=== PATIENT | male | born 1980 | race Caucasian/White ===

== ENCOUNTER → 2017-11-06 | Outpatient (CLI) | payer MEDICARE ==
[~2017-11-06] MED LIST: BACTRIM DS TAB1 EACH PO; CIPRO500 MG PO; CLARITHROMYCIN500 MG PO; DOXEPIN 10 MG C10 MG GT; DOXEPIN 25 MG C25 M1 PO; FLAGYL500 MG PO; HYDROCODONE-AP1 EAC6 PO; HYDROCORTISONE30 G9 RECTAL; IBUPROFEN 800800 M1 PO; LEVSIN-SL0.125 MG SUBLING; MYAMBUTOL 400400 M1 PO; MYCOBUTIN150 MG PO; NAPROSYN500 MG PO; NORCO 5-325 TA1 EACH PO; PHENERGAN 25 MG25 M1 PO; PREDNISONE 20 M20 MG PO; PROZAC PO; PROZAC20 MG PO; TIZANIDINE HCL 22 M1 PO; TORADOL 10 MG T10 MG PO; VIAGRA50 MG PO; VISTARIL 25 MG25 M1 PO; ZANAFLEX2 MG PO; ZOFRAN ODT4 MG PO
--- NOTE | 2017-11-11 07:00 | PAINCON ---
[facility] [address] [place] [address] PAIN MANAGEMENT CONSULTATION Name: BROOKE SCHERER Room: [facility] Giovanni#: [id number] Admission: 11/06/17 Attend Phys: Michoacano Faulkner Discharge: Date of : 82 Report #: [id number] THIS REPORT FOR: //name// CC: Luke Zurita DATE OF SERVICE: 11/06/2017 The patient is a 37-year-old gentleman being treated for chronic abdominal pain, left testicular pain, myofascial pain requiring complex medication management. The patient was last seen in pain clinic 07/03/2017. The patient was continued on hydrocodone 5/325 rare use, 20 tablet prescription has lasted these past 4 months. Reviewing the chart, I had ordered a buccal swab at last visit, though it appears that may not have been accomplished. We will want to obtain a buccal swab at next visit. He returns to pain clinic today noting overall pain has been reasonably well controlled. He was seen in the ER 1 time 08/09/2017 for migraine headache. Otherwise, abdominal pain has been relatively quiescent. I trialed Levsin with really no efficacy. He did have what sounds like a perirectal abscess drained about a year ago. He still has a little episodic drainage from this area. I strongly recommended that he follow up with his prior surgeon. PHYSICAL EXAMINATION: Otherwise shows 37-year-old gentleman, BMI is 28.6 kilograms per meter squared. Blood pressure 114/75, pulse 74, respirations are 16. Alert and oriented to person, place and time, judged to be a reasonable historian. Rises from chair easily. Gait is tandem. Has some tenderness in left perirectal area. Rectal exam was deferred. Has some diffuse low back tenderness, diffuse abdominal pain, no discrete tender areas. No rebound, no guarding. ASSESSMENT: A 37-year-old gentleman with: 1. Chronic abdominal pain, uses infrequent hydrocodone 5/325, 20 tablets lasted 4 months at last visit. Tizanidine at bedtime has not been helpful. We will discontinue that. Likewise, Levsin had not been efficacious, we will discontinue that as well. We talked about trialing resumption of Naprosyn. Oftentimes, abdominal pain can be prostaglandin mediated, we will trial this again. The patient cautioned about gastrointestinal issues including dyspepsia, gastroesophageal reflux, "heartburn" and/or melenic stools. For any of these reasons, he should discontinue Naprosyn. I will renew hydrocodone 5/325, limit 30 tablets 1 q.6h., not to be used daily. We will trial Naprosyn 5 mg b.i.d. with again cautioned for GI distress. Follow up simply as needed. Discharged in good and stable condition [facility] [address] [place] [address] PAIN MANAGEMENT CONSULTATION Name: BROOKE SCHERER Room: [facility]#: [id number] Admission: 11/06/17 Attend Phys: Michoacano Faulkner Discharge: Date of : 82 Report #: [id number] 2. Chronic left testicular pain. 3. HIV positive. <ELECTRONICALLY SIGNED> By: Ankit Zurita DO 11/11/17 0700 1331 1402[facility] Zurita [facility] /nt
== END ==
LOC: M.PC 01:32
DX: N50.812 Left testicular pain (principal); R10.9 Unspecified abdominal pain; M79.1 Myalgia; G89.29 Other chronic pain

== ENCOUNTER → 2018-04-01 | Outpatient (CLI) | payer MEDICARE ==
--- NOTE | 2018-04-16 16:41 | PAINCON ---
[address] [address] PAIN MANAGEMENT CONSULTATION Name: BROOKE SCHERER Room: [facility] Giovanni#: [id number] Admission: 04/01/18 Attend Phys: Mely Lovelace MD Discharge: Date of : 82 Report #: [id number] THIS REPORT FOR: //name// CC: Luke Lovelace DATE OF SERVICE: 04/01/2018 CHIEF COMPLAINT: Abdominal pain, testicular pain since 2014. FOLLOWUP HISTORY: The patient is a 38-year-old gentleman who has been seen in the pain clinic by Dr. Ankit Zurita. The patient has a history of chronic abdominal pain. It involves the left testicular involvement. There is also some myofascial component to it as well. The patient has been treated with hydrocodone on rare occasion. He described the pain is severe at this point. As a burning sensation described as constant. Also, has abdominal cramping/stomach discomfort. Rates his pain as a 6/10. Has used Naprosyn 500 mg b.i.d. Pain is exacerbated by remaining in position for too longer period of time. ALLERGIES: PENICILLIN, PERCOCET. CURRENT MEDICATIONS: Naprosyn 500 mg b.i.d., [place] p.r.n. DISCONTINUED MEDICATIONS: Prozac 60 mg daily, doxepin 20 mg daily, Mycobutin 150 mg daily, clarithromycin 500 mg b.i.d., Myambutol 400 mg daily. PAST MEDICAL HISTORY: HIV, depression. PAST SURGICAL HISTORY: Appendectomy in 01/2015. Possible drainage of a perirectal abscess about 1 year ago. 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 REVIEW OF SYSTEMS: Fevers, night sweats, fatigue, blurred vision, hearing loss/ringing in the ears, nausea, vomiting, abdominal pain, sexual difficulty, glandular/hormone problem, hot cold intolerance, rash, itching, lightheadedness, dizziness, memory loss, confusion, depression, insomnia. LABORATORY DATA: No new laboratory values available at our interview. PAIN CLINIC ASSESSMENT: 1. History of osteoarthritis. The patient has not been treated for osteoarthritis or rheumatoid arthritis. 2. Height 5 feet 11 inches, weight 197 pound 194 pounds, BMI is 28. 3. Vital signs: Blood pressure 140/64, heart rate 74, respiratory rate 16, [place] [address] PAIN MANAGEMENT CONSULTATION Name: NIESHABROOKE Lorena Room: [facility]#: [id number] Admission: 04/01/18 Attend Phys: Mely Lovelace MD Discharge: Date of : 82 Report #: [id number] room air saturation 97%, temperature 98.2. 4. Pain score 6/10. 5. Fall risk. The patient has not fallen in the last 3 months. 6. Blood thinner. The patient is not on a blood thinning medication. 7. Hypertension. The patient has not been treated for hypertension. 8. Opioid greater than 6 weeks. The patient is not on a regular regimen of opioid medication. 9. Risk assessment tool, low for opioid use. 10. Functional assessment tool. 11. Recreational drug use. The patient denies use of recreational drugs. 12. Tobacco: The patient denies use of tobacco. 13. Alcohol use. The patient denies regular use of alcoholic beverages. PHYSICAL EXAMINATION: GENERAL: The patient is a well-developed white male, appears stated age. He is alert and oriented x3. Affect is appropriate. Speech is fluent. HEAD, EYES, EARS, NOSE, AND THROAT: Normocephalic, atraumatic. Extraocular eye muscles intact. Sclerae nonicteric. NECK: With good range of motion without JVD. HEART: Regular rate. ABDOMEN: The patient complains of abdominal pain, has some generalized discomfort in the upper right and lower right abdominal areas, upper extremity muscle strength judged to be 5/5 for the major muscle groups. Lower extremity muscle strength is judged to be 4-5/5 for the major muscle groups without neurological change. MUSCULOSKELETAL: Without significant scoliosis, kyphosis or lordosis. IMPRESSION: 1. History of abdominal pain. 2. Testicular pain. 3. HIV positivity. RECOMMENDATION: The patient states he continues to have some abdominal problems. He states that he has been diagnosed with a low growing bacteria. He has been treated with antibiotics. Has noted some increased pain and discomfort over the last 5 weeks. The patient run out of his medication. He would like to have renewal of hydrocodone. Feels that the medication is helpful. States he only get the medication from one source. Has returned to the pain clinic [place] [address] PAIN MANAGEMENT CONSULTATION Name: YOLANDAENDYBROOKE Room: [facility]#: [id number] Admission: 04/01/18 Attend Phys: Mely Lovelace MD Discharge: Date of : 82 Report #: [id number] 04/15/2018: Report amended for demographic error. <ELECTRONICALLY SIGNED> By: Mely Lovelace MD 04/16/18 1641 0904 [id number]. Pablo Lovelace MD /[facility]
== END ==
LOC: M.PC 04:50
DX: N50.819 Testicular pain, unspecified (principal); R10.9 Unspecified abdominal pain; Z21 Asymptomatic human immunodeficiency virus [HIV] infection status

== ENCOUNTER → 2018-04-29 | Outpatient (CLI) | payer MEDICARE ==
--- NOTE | 2018-06-02 10:00 | PAINCON ---
[address] [address] PAIN MANAGEMENT CONSULTATION Name: BROOKE SCHERER Room: [facility] Giovanni#: [id number] Admission: 04/29/18 Attend Phys: Mely Lovelace MD Discharge: Date of : 84 Report #: [id number] THIS REPORT FOR: //name// CC: Luke Lovelace DATE OF SERVICE: 04/29/2018 FOLLOWUP COMPLAINT: Abdominal pain and testicular pain. FOLLOWUP HISTORY: The patient is a 38-year-old gentleman who has been followed in the pain clinic because of chronic pain. He has had problems with this discomfort since 2014. He finds that his current use of [place] 5 mg b.i.d. on work days are helpful. Finds that Naprosyn is helpful as well, Zanaflex as a muscle relaxant continues to be beneficial as well. States that he has his good days and his bad days. Pain has been manageable with his current medical regimen. Still has some burning sensation. Now, he is much better at this juncture. The patient notes that his pain can be more problematic, if he remains in one position for too long. ALLERGIES: PENICILLIN AND PERCOCET. MEDICATIONS: [place] 5/325 one p.o. q. 4 hours approximately 2 per day, Naprosyn 500 mg b.i.d., Zanaflex 2 mg 1-2 tablets daily, clarithromycin 500 mg b.i.d., doxepin 25 mg, rifabutin 150 mg b.i.d., Viagra 50 mg p.r.n., ____ and Prozac 60 mg. PAIN CLINIC ASSESSMENT: 1. History of osteoarthritis. The patient has not been treated for osteoarthritis or rheumatoid arthritis. 2. Height 5 feet 11 inches, weight 196 pounds, BMI is 28.2. 3. Vital signs: Blood pressure 130/88, heart rate 72, respiratory rate 16, room air saturation 98%, temperature 98.1. 4. Pain score 2/10. 5. Fall risk. The patient has not fallen in the last 3 months. 6. Blood thinner. The patient is not on a blood thinning medication. 7. Hypertension. The patient has not been treated for hypertension. 8. Opioid therapy greater than 6 weeks. The patient is not on a regular opioid regimen, but receives medications from the pain clinic. 9. Risk assessment tool, low for opioid use. 10. Functional assessment tool. 11. Recreational drug use. The patient denies use of recreational drugs. 12. Tobacco: The patient denies use of tobacco. 13. Alcohol: The patient denies use of alcohol on a regular basis. PHYSICAL EXAMINATION: [place] [address] PAIN MANAGEMENT CONSULTATION Name: BROOKE SCHERER Room: [facility]#: [id number] Admission: 04/29/18 Attend Phys: Mely Lovelace MD Discharge: Date of : 84 Report #: [id number] GENERAL: The patient is well-developed, well-nourished white male, appears his stated age. He is alert and oriented x 3. His affect is appropriate. Speech is fluent. HEENT: Normocephalic, atraumatic. Extraocular eye muscles intact. Sclerae nonicteric. Mucous membranes are moist. NECK: With good range of motion without JVD. HEART: Regular rate. S1, S2. ABDOMEN: Nontender. The patient has some generalized discomfort in the right upper and right lower abdominal areas. MUSCULOSKELETAL: His upper extremity muscle strength is judged to be 5/5. The major muscle groups in the lower extremity are 5/5. Musculoskeletal, without significant scoliosis, kyphosis, or lordosis. He has pain and discomfort in the abdominal area as well as some testicular pain. IMPRESSION: 1. History of abdominal pain. 2. Testicular pain. 3. HIV positivity. RECOMMENDATIONS: We discussed treatment options with the patient. At this juncture, he feels his medications are helpful. He is able to be gainfully employed at this juncture. He would like to have his medications renewed. He is happy that he has a new job. He is happy that he is not having nausea "all the time." He feels that things are 10 times better. He feels more productive. We will continue with his current medical regimen. A script for hydrocodone 5/325 one p.o. daily has been written. Also, the patient will continue with Naprosyn 500 mg b.i.d. He will stop this medication, if he notes problems with his GI tract. We would like to thank you for letting us participate in his care. We hope he continues to improve. <ELECTRONICALLY SIGNED> By: Mely Lovelace MD 06/02/18 1000 [id number]. Pablo Lovelace MD /[facility]ha
== END ==
LOC: M.PC 04:48
DX: R10.9 Unspecified abdominal pain (principal); N50.819 Testicular pain, unspecified; G89.29 Other chronic pain; Z21 Asymptomatic human immunodeficiency virus [HIV] infection status

== ENCOUNTER → 2018-05-29 | Outpatient (CLI) | payer MEDICARE ==
--- NOTE | 2018-06-02 10:00 | PAINCON ---
[address] [address] PAIN MANAGEMENT CONSULTATION Name: BROOKE SCHERER [id number] Admission: 05/29/18 Attend Phys: Mely Lovelace MD Discharge: Date of : 82 Report #: [id number] THIS REPORT FOR: //name// CC: Luke Lovelace DATE OF SERVICE: 05/29/2018 CHIEF COMPLAINT: Here for medicine renewal, things are going pretty well. HISTORY OF PRESENT ILLNESS: The patient is a 38-year-old gentleman who has been followed in the pain clinic. He has pain and discomfort since 2014. He has been using [place] medication 5 mg b.i.d., which are helpful. Enables him to remain gainfully employed. States that overall things are going reasonably well and he has returned today for renewal of his medications. He does have some pain in the abdominal area. Also, has some testicular pain that has been chronic since 2015. Feels that the use of his medications continue to help manage the pain. Pain is worse with prolonged sitting, bending and lifting. ALLERGIES: PENICILLIN, PERCOCET. CURRENT MEDICATIONS: [place] 5/325 mg 1 p.o. q.4 hours p.r.n. approximately 2 tablets per day, Naprosyn 500 mg b.i.d., Zanaflex 2 mg 1/2 tablet daily, clarithromycin 500 mg b.i.d., doxepin 25 mg, rifabutin 150 mg b.i.d., Viagra 50 mg p.r.n., Zanaflex 2 mg, Prozac 60 mg. PAIN CLINIC ASSESSMENT AND PQRS: 1. History of osteoarthritis/rheumatoid arthritis. The patient has not been treated for rheumatoid arthritis or osteoarthritis. 2. Height 5 feet 10 inches, weight 202 pounds, BMI is 30. 3. Vital signs: Blood pressure 138/93, heart rate 72, respiratory rate 16, room air saturation 98%, temperature 98.0. 4. Pain intensity 10/26. 5. Fall history. The patient has not fallen in the last 3 months. 6. Blood thinner. The patient is not on a blood thinning medication. 7. Hypertension. The patient is not being treated for hypertension. 7. Opioid therapy greater than 6 weeks. The patient is not on an opioid medication greater than 6 weeks except for that provided by the pain clinic. 8. Risk assessment tool, low for use of opioid. 9. Functional assessment tool. 10. Recreational drug use. The patient denies use of recreational drugs. 11. Tobacco. The patient denies use of tobacco. 12. Alcohol. The patient denies use of alcohol on a regular basis. PHYSICAL EXAMINATION: [place] [address] PAIN MANAGEMENT CONSULTATION Name: BROOKE SCHERER Room: [facility]#: [id number] Admission: 05/29/18 Attend Phys: Mely Lovelace MD Discharge: Date of : 84 Report #: [id number] GENERAL: The patient is a well-developed, well-nourished, white male. Appears his stated age. He is alert and oriented x 3. His affect is appropriate. Speech is fluent. HEENT: Normocephalic, atraumatic. Extraocular eye muscles intact. Sclerae nonicteric. Mucous membranes are moist. NECK: With good range of motion. HEART: Without murmur. Regular rate. S1, S2. ABDOMEN: Nontender, but the patient does have some abdominal discomfort today. GENITOURINARY: Notes some testicular pain and discomfort, which has been problematic since 2015. EXTREMITIES: Lower extremity muscle strength is judged to be 5/5 for the major muscle groups. Upper extremity muscle strength 5/5 for the major muscle groups. IMPRESSION: 1. History of abdominal pain. 2. History of testicular pain since 2014. 3. Human immunodeficiency virus positivity. RECOMMENDATIONS: We discussed treatment options with the patient. At this juncture, he feels his medications are helpful. He does not have any problems with them. He has returned to the pain clinic for renewal of his medications. We have discussed the use of opioid medications. They include possibility of the development of dependence/less effectiveness over time secondary to tolerance. The patient feels the medications are helpful, working reasonably well and would like to continue with this at this juncture. He is aware that the medication should be kept in a guarded area. Keeps them in a protected environment. We would like to thank you for letting us participate in his care. We hope he continues to improve. <ELECTRONICALLY SIGNED> By: Mely Lovelace MD 06/02/18 1000 [id number]. Pablo Lovelace MD /[facility]
== END ==
LOC: M.PC 05:17
DX: N50.819 Testicular pain, unspecified (principal); R10.9 Unspecified abdominal pain; Z21 Asymptomatic human immunodeficiency virus [HIV] infection status; Z79.899 Other long term (current) drug therapy

== ENCOUNTER → 2018-06-26 | Outpatient (CLI) | payer MEDICARE ==
--- NOTE | ~2018-06-26 | PAINCON ---
[address] [address] PAIN MANAGEMENT CONSULTATION Name: BROOKE SCHERER [facility] [id number] Admission: 06/26/18 Attend Phys: Mely Lovelace MD Discharge: Date of : 84 Report #: [id number] THIS REPORT FOR: //name// CC: Luke Lovelace DATE OF SERVICE: 06/26/2018 FOLLOWUP COMPLAINT: Here for medication renewal. HISTORY OF PRESENT ILLNESS: The patient is a 38-year-old gentleman who has been followed in the Pain Clinic. He has pain and discomfort in the groin area. This has been problematic since approximately 2014. He has found that [place] 5 mg b.i.d. continues to be helpful. He is gainfully employed. He notes that the pain waxes and wanes as time goes by. He is rating his pain as a 1/10 at this juncture. He notes that it involves the testicular area. He states that there has been some question as to whether or not there is still some ongoing infection in the area causing this chronic pain and discomfort. He has taken the medication as prescribed. Some activities of daily living are limited because of prolonged bending, twisting, and lifting, these all exacerbate his discomfort. ALLERGIES: PENICILLIN AND PERCOCET. MEDICATIONS: [place] 5/325 one p.o. q. 4 hours p.r.n. approximately 2 tablets daily, Naprosyn 500 mg b.i.d., Zanaflex 2 mg 1/2 tablet daily, clarithromycin 500 mg b.i.d., doxepin 25 mg, rifabutin 150 mg b.i.d., Viagra 50 mg p.r.n., Zanaflex 2 mg, and Prozac 60 mg. PAIN CLINIC ASSESSMENT AND PQRS: 1. History of osteoarthritis/rheumatoid arthritis: The patient is not being treated for rheumatoid arthritis or osteoarthritis. 2. Height 5 feet 10 inches, weight 200 pounds, BMI is 28.8. 3. Vital signs: Blood pressure 114/78, heart rate 71, respiratory rate 16, room air saturation is 96%, temperature 97.8. 4. Pain score: 08/28. 5. Fall history: The patient has not fallen in the last 3 months. 6. Blood thinner: The patient is not on a blood thinning medication. 7. Hypertension: The patient is not being treated for hypertension. 8. Opioid medications greater than 6 weeks: The patient is receiving medications from one source from the Pain Clinic. 9. Risk assessment tool: Low for opioid use. 10. Functional assessment tool. 11. Recreational drug use: The patient denies use of recreational drugs. 12. Tobacco: The [place] [address] PAIN MANAGEMENT CONSULTATION Name: BROOKE SCHERER Room: [facility]#: [id number] Admission: 06/26/18 Attend Phys: Mely Lovelace MD Discharge: Date of : 84 Report #: [id number] 13. Alcohol: The patient denies use of alcoholic beverages on a regular basis. PHYSICAL EXAMINATION: GENERAL: The patient is a well-developed, well-nourished, white male. He appears his stated age. He is alert and oriented x 3. His affect is appropriate. Speech is fluent. HEENT: Normocephalic, atraumatic. Extraocular eye muscles intact. Sclerae nonicteric. Mucous membranes are moist. NECK: Without adenopathy. Good range of motion. HEART: Regular rate without murmurs. S1 and S2. ABDOMEN: Nontender. LUNGS: Clear to auscultation without rhonchi or rales. GENITOURINARY: The patient still has testicular pain with some discomfort. Pain is more problematic with certain movements, chronic since 2014. EXTREMITIES: Upper extremity muscle strength is judged to be 5/5 for the major muscle groups. Lower extremity muscle strength is judged to be 5/5 for the major muscle groups. IMPRESSION: 1. History of abdominal pain. 2. History of testicular pain since 2014. 3. Human immunodeficiency virus positivity. RECOMMENDATIONS: We discussed treatment options with the patient. At this juncture, we will continue with his medications. He feels that these medications are helpful. He does not have any problems with the medications. He is able to remain gainfully employed. He feels that these medications are not causing problems with mentation. A script for his medications of Naprosyn 500 mg 1 p.o. b.i.d., tizanidine 2 mg 1 to 2 tablets p.r.n. daily, hydrocodone 5/325 one p.o. q. 4 hours p.r.n., total of 30 tablets have been dispensed. The patient will call us if he has any problems. We would like to thank you for letting us participate in his care. We hope he continues to improve. By: [id number]. Pablo Lovelace MD /talha
== END ==
LOC: M.PC 05:09
DX: R10.30 Lower abdominal pain, unspecified (principal); N50.819 Testicular pain, unspecified; G89.29 Other chronic pain; Z21 Asymptomatic human immunodeficiency virus [HIV] infection status; Z79.899 Other long term (current) drug therapy

== ENCOUNTER → 2018-07-24 | Outpatient (CLI) | payer MEDICARE ==
--- NOTE | 2018-07-25 17:20 | PAINCON ---
[facility] [address] [place] [address] PAIN MANAGEMENT CONSULTATION Name: BROOKE SCHERER Room: [facility] UPMCEl#: [id number] Admission: 07/24/18 Attend Phys: Mely Lovelace MD Discharge: Date of : 84 Report #: [id number] THIS REPORT FOR: //name// CC: Luke Lovelace DATE OF SERVICE: 07/24/2018 FOLLOWUP HISTORY: Medications are working well. HISTORY: The patient is a 38-year-old gentleman who has been followed in the pain clinic. As you recall, he has had some pain and discomfort in the groin area. States that it is a cramping type feeling. States that he has been told that the reason for the discomfort as a "gland thing." Pain has been problematic since about 2014. Finds that his current medication dosage of Richardson 5 mg 1 p.o. and tizanidine with Naprosyn to be efficacious in helping to control his pain. Finds that the Richardson 5 mg 1 p.o. t.i.d. is helpful. Naproxen has not caused any problems with his bowel or bladder function. Feels that the Zanaflex is helpful as well. The patient states that he has "ongoing infection that this causing the chronic pain and discomfort. Notes that activities of daily living are limited when his pain is problematic. Bending, twisting, lifting all exacerbate cause discomfort. ALLERGIES: PENICILLIN, PERCOCET. CURRENT MEDICATIONS: Richardson 5/325 one p.o. q. 4 hours p.r.n. pain approximately 2 pills per day, Naprosyn 500 mg b.i.d., Zanaflex 2 mg 1-1/2 tablets per day, clarithromycin 500 mg b.i.d., doxepin 25 mg, rifabutin 150 mg b.i.d., Viagra 50 mg p.r.n., Zanaflex 2 mg, Prozac 60 mg. PAIN CLINIC ASSESSMENT/PQRS: 1. History of osteoarthritis/rheumatoid arthritis. 2. The patient is not being treated for rheumatoid arthritis or osteoarthritis. 3. Height 5 feet 10 inches and weight 204 pounds, BMI is 29.3. 4. VITAL SIGNS: Blood pressure 125/71, heart rate 72, respiratory rate 18, room air saturation 97%, temperature 97.9. 5. Pain score 0 out of 6. Fall history: The patient has not fallen in the last 3 months. 7. Blood thinner. The patient is not on a blood thinning medication. 8. Hypertension. The patient is not being treated for hypertension. 9. Opioid therapy greater than 6 weeks. The patient receives his medication from one source, the pain clinic. 10. Risk assessment tool, low for opioid use. 11. Functional assessment tool. 12. Recreational drug use. The patient denies use of recreational drugs. 13. Tobacco: The patient [place] [address] PAIN MANAGEMENT CONSULTATION Name: BROOKE SCHERER Room: [facility]#: [id number] Admission: 07/24/18 Attend Phys: Mely Lovelace MD Discharge: Date of : 82 Report #: [id number] 14. Alcohol: The patient uses alcoholic beverages on occasional basis. PHYSICAL EXAMINATION: GENERAL: The patient is a well-developed, well-nourished white male. Appears his stated age. He is alert and oriented x 3. Affect is appropriate. Speech is fluent. HEENT: Normocephalic, atraumatic. Extraocular eye muscles intact. Sclerae nonicteric. Mucous membranes are moist. NECK: Without adenopathy or JVD. Good range of motion. HEART: Regular rate without murmurs. S1, S2 present. ABDOMEN: Nontender. LUNGS: Clear to auscultation without rhonchi or rales. The patient has pain level which he states is about 0 today. He is not having much problem. Usually the pain is in the lower abdominal area as well as in the area of the anterior superior iliac crest. IMPRESSION: 1. History of abdominal pain improved with his current medical regimen. 2. History of testicular pain since 2014. 3. Human immunodeficiency positivity/HIV positive. RECOMMENDATIONS: We discussed treatment options with the patient. At this juncture, we will continue with his current medications. He feels that they are working reasonably well. Overall, things are going pretty well. He is rating his pain as a 0/10 today. We will continue with his medications. He will call us if he has any concerns. We would like to thank you for letting us participate in his care. We hope he continues to improve. <ELECTRONICALLY SIGNED> By: Mely Lovelace MD 07/25/18 1720 [id number]. Pablo Lovelace MD /talha
== END ==
LOC: M.PC 04:40
DX: N50.819 Testicular pain, unspecified (principal); R10.9 Unspecified abdominal pain; Z21 Asymptomatic human immunodeficiency virus [HIV] infection status; Z79.899 Other long term (current) drug therapy

== ENCOUNTER → 2018-08-21 | Outpatient (CLI) | payer MEDICARE ==
--- NOTE | ~2018-08-21 | PAINCON ---
[address] [address] PAIN MANAGEMENT CONSULTATION Name: BROOKE SCHERER Room: [facility] Joshua.#: [id number] Admission: 08/21/18 Attend Phys: Mely Lovelace MD Discharge: Date of : 82 Report #: [id number] THIS REPORT FOR: //name// CC: Luke Lovelace DATE OF SERVICE: 08/21/2018 CHIEF COMPLAINT: Here for medications. Things are working pretty well. Still having some abdominal and testicular pain. HISTORY: The patient is a 38-year-old gentleman who has been followed in the pain clinic because of chronic pain. As you recall, he has pain and discomfort in the area of his groin. It involves his testicular area as well as abdominal pain. He feels that his current medical regimen of Naprosyn, Gardner and tizanidine are beneficial. He would like to have these medications renewed. He has had this problem for some time as you may recall, this has been present since 2004. The patient states that he has had this ongoing infection, which is causing the chronic pain. Changes are remaining in one position for too long can be problematic. ALLERGIES: PENICILLIN, PERCOCET. CURRENT MEDICATIONS: Gardner 5/325 one p.o. q. 4 hours p.r.n., Naprosyn 500 mg b.i.d., Zanaflex 2 mg 1-1/2 tablets, clarithromycin 500 mg b.i.d., doxepin 25 mg, rifabutin 150 mg b.i.d., Viagra 50 mg p.r.n., Zanaflex 2 mg, Prozac 60 mg. PAIN CLINIC ASSESSMENT/PQRS: 1. History of osteoarthritis and rheumatoid arthritis. The patient is not being treated for either osteoarthritis or rheumatoid arthritis. 2. Height 5 feet 10 inches, weight 207 pounds, BMI is 29.7. 3. Vital signs: Blood pressure 118/76, heart rate 76, respiratory rate 16, room air saturation is 96%. Temperature 98.2. 4. Pain intensity 1-09/28. 5. Fall history: The patient has not fallen in the last 3 months. 6. Blood thinner. The patient is not on a blood thinning medication. 7. Hypertension. The patient is not being treated for hypertension. 8. Opioids greater than 6 weeks. The patient has received this medication from one source, the pain clinic. 9. Risk assessment tool some low. 10. Functional assessment tool. 11. Recreational drug use: The patient denies. 12. Tobacco: The patient denies. 13. Alcohol: The patient denies use of alcoholic beverages. PHYSICAL EXAMINATION: [place] [address] PAIN MANAGEMENT CONSULTATION Name: BROOKE SCHERER Room: [facility]#: [id number] Admission: 08/21/18 Attend Phys: Mely Lovelace MD Discharge: Date of : 82 Report #: [id number] GENERAL: The patient is a well-developed, well-nourished white male. Appears his stated age. He is alert and oriented x 3. His affect is appropriate. Speech is fluent. HEENT: Normocephalic, atraumatic. Extraocular eye muscles intact. Sclerae nonicteric. Mucous membranes are moist. NECK: Without adenopathy or JVD. Good range of motion. HEART: Regular rate without murmurs. ABDOMEN: Nontender. Bowel sounds present. LUNGS: Clear to auscultation without rhonchi or rales. MUSCULOSKELETAL: Without significant scoliosis, kyphosis or lordosis. The patient does have some abdominal pain and some pain in the anterior area in the testicular area where he still complains of pain. IMPRESSION: 1. History of abdominal pain improved with current medication regimen. 2. History of testicular pain since 2014. 3. Human immunodeficiency/HIV. RECOMMENDATIONS: We discussed treatment options with the patient. At this juncture, we will continue with his current medications. He feels that they are working. He does not have any problems with the medications. He will call us if he has any concerns. A script for his medication of Naprosyn 500 mg 1 p.o. b.i.d., tizanidine 2 mg 1-2 tablets p.o. daily total of 60 and hydrocodone 5/325, total of 30 tablets have been dispensed. We would like to thank you for letting us participate in his care. We hope he continues to improve. By: [id number]. Pablo Lovelace MD /nt
== END ==
LOC: M.PC 12:40
DX: B20 Human immunodeficiency virus [HIV] disease (principal); N50.819 Testicular pain, unspecified; R10.9 Unspecified abdominal pain

== ENCOUNTER → 2018-09-18 | Outpatient (CLI) | payer MEDICARE ==
--- NOTE | ~2018-09-18 | PAINCON ---
[address] [address] PAIN MANAGEMENT CONSULTATION Name: BROOKE SCHERER Room: [facility] Giovanni#: [id number] Admission: 09/18/18 Attend Phys: Mely Lovelace MD Discharge: Date of : 82 Report #: [id number] THIS REPORT FOR: //name// CC: Luke Lovelace DATE OF SERVICE: 09/18/2018 CHIEF COMPLAINT: "Things are going pretty well, here for medication renewal." HISTORY: The patient is a 38-year-old gentleman who has been followed in the Pain Clinic. As you recall, he has continued to have pain and discomfort in the groin area. It involves the testicular area. He has some abdominal pain, which has been reasonably controlled with use of hydrocodone. He has noted some worsening of his pain. He has been experiencing some nausea over the last few days. He notes that the pain is worse with certain activities, walking, sitting, standing. He does work at [employer]. After a long day at [employer] with significant amounts of walking and activity, he does note some worsening of this pain. He would like to have his medications renewed. He feels that he may have some postnasal drip type symptoms ongoing. He does follow up with his primary physician. He is wondering whether or not he should get an antibiotic, Z-TOBIN. ALLERGIES: PENICILLIN, PERCOCET. CURRENT MEDICATIONS: Hopkins 5 mg one p.o. q. 4 hours p.r.n. pain, Naprosyn 500 mg b.i.d., Zanaflex 2 mg 1-1/2 tablet, clarithromycin 500 mg b.i.d., doxepin 25 mg, rifabutin 150 mg b.i.d., Viagra 50 mg, Zanaflex 2 mg, Prozac 60 mg. PAIN CLINIC ASSESSMENT/PQRS: 1. Osteoarthritis. The patient is not being treated for rheumatoid arthritis or osteoarthritis. 2. Height 5 feet 10 inches, weight 204 pounds, BMI is 29. 3. Vital Signs: Blood pressure 137/70, heart rate 89, respiratory rate 16, room air saturation 96%, temperature 98.9. 4. Pain intensity: 08/28. 5. Fall history: The patient has not fallen in the last 3 months. 6. Blood thinner: The patient is not on a blood thinning medication. 7. Hypertension: The patient is not being treated for hypertension. 8. Opioids greater than 6 weeks: The patient receives his medications from one source, the Pain Clinic. 9. Risk assessment tool: Low for opioid use. 10. Functional assessment tool. 11. Recreational drug use: The patient denies use of recreational drugs. 12. Tobacco: The patient denies use of tobacco. 13. Alcohol. The [place] [address] PAIN MANAGEMENT CONSULTATION Name: BROOKE SCHERER Room: [facility]#: [id number] Admission: 09/18/18 Attend Phys: Mely Lovelace MD Discharge: Date of : 82 Report #: [id number] PHYSICAL EXAMINATION: GENERAL: The patient is a well-developed, well-nourished white male. He appears his stated age. He is alert and oriented x 3. His affect is appropriate. Speech is fluent. HEENT: Normocephalic, atraumatic. Extraocular eye muscles intact. Sclerae nonicteric. Mucous membranes are moist. NECK: Without adenopathy or JVD. Good range of motion. HEART: Regular rate, without murmurs. ABDOMEN: Nontender. Bowel sounds present. LUNGS: Clear to auscultation, without rhonchi or rales. MUSCULOSKELETAL: Without significant scoliosis, kyphosis or lordosis. The patient does have some abdominal pain in the anterior portion as well as the testicular pain, which still is somewhat problematic. IMPRESSION: 1. History of abdominal pain, improved with current medical regimen. 2. History of testicular pain since 2014. 3. Human immunodeficiency virus positive. RECOMMENDATIONS: We discussed treatment options with the patient. At this juncture, we will continue with his current medications. Risks and benefits of opioid medications were discussed. Opioid medications can cause dependency as well as become less effective over a period of time secondary to tolerance. About 75 people a day overdose from use of medications. The patient feels the medications are helpful and would like to continue with their use. A script for his medications of Hopkins 5/325, Naprosyn 500 mg b.i.d. and tizanidine 2 mg one to two daily at bedtime has been provided. We would like to thank you for letting us participate in his care. We hope he continues to improve. By: [id number]. Pablo Lovelace MD /nt
== END ==
LOC: M.PC 05:12
DX: N50.819 Testicular pain, unspecified (principal); R10.9 Unspecified abdominal pain; Z21 Asymptomatic human immunodeficiency virus [HIV] infection status; Z79.899 Other long term (current) drug therapy

== ENCOUNTER → 2018-10-16 | Outpatient (CLI) | payer MEDICARE ==
[~2018-10-16] MED LIST changes: +TRAMADOL 50 MG50 MG PO
--- NOTE | ~2018-10-16 | PAINCON ---
[address] [address] PAIN MANAGEMENT CONSULTATION Name: BROOKE SCHERER Room: [facility] JACKIERaeann Davila#: [id number] Admission: 10/16/18 Attend Phys: Mely Lovelace MD Discharge: Date of : 82 Report #: [id number] THIS REPORT FOR: //name// CC: Luke Lovelace DATE OF SERVICE: 10/16/2018 CHIEF COMPLAINT: "Here for medication renewal." FOLLOWUP HISTORY: The patient is a 38-year-old gentleman who has returned to the Pain Clinic for renewal of his medications. He continues to have abdominal pain of chronic nature. He is on a chronic antibiotic regimen. He finds that his current use of hydrocodone, doxepin and Naprosyn continue to be helpful. He has returned today for renewal of his medications. He notes that there is some involvement with pain in the testicular area. He continues to work at [email or web address]. He is considering going to [place] in the future. ALLERGIES: PENICILLIN AND PERCOCET. CURRENT MEDICATIONS: [place] 5 mg one p.o. q. four hours p.r.n. pain, Naprosyn 500 mg b.i.d., Zanaflex 2 mg qni-iow-d-half tablets, clarithromycin 500 mg b.i.d., doxepin 25 mg, rifabutin 150 mg b.i.d., Viagra 50 mg p.r.n., Zanaflex 2 mg, Prozac 60 mg. PAIN CLINIC ASSESSMENT/PQRS: 1. The patient is not being treated for osteoarthritis or rheumatoid arthritis. 2. Height 5 feet 10 inches, weight 211 pounds, BMI is 30. 3. Vital signs: Blood pressure 121/73, heart rate 75, respiratory rate 16, room air saturation 97%, temperature 98.1. 4. Pain intensity: 08/28. 5. Fall history: The patient has not fallen in the last 3 months. 6. Blood thinner: The patient is not on a blood thinning medication. 7. Hypertension: The patient is not being treated for hypertension. 8. Opioids greater than 6 weeks: The patient receives his medications from one source, pain Clinic. 9. Risk assessment tool: Low for opioid use. 10. Functional status tool. 11. Recreational drug use: The patient denies use of recreational drugs. 12. Tobacco: The patient denies use of tobacco. 13. Alcohol: The patient denies frequent use of alcoholic beverages. PHYSICAL EXAMINATION: GENERAL: The patient is a well-developed, well-nourished white male. He appears his stated age. He is alert and oriented x 3. His affect is appropriate. [place] [address] PAIN MANAGEMENT CONSULTATION Name: BROOKE SCHERER Room: [facility]#: [id number] Admission: 10/16/18 Attend Phys: Mely Lovelace MD Discharge: Date of : 84 Report #: [id number] HEENT: Normocephalic, atraumatic. Extraocular eye muscles are intact. Sclerae are nonicteric. Mucous membranes are moist. NECK: Without adenopathy or JVD. HEART: Regular rate, without murmurs. LUNGS: Clear to auscultation, without rhonchi or rales. ABDOMEN: Nontender. Bowel sounds present. He has some pain and discomfort in the testicular area. MUSCULOSKELETAL: Without scoliosis, kyphosis, or lordosis. IMPRESSION: 1. History of abdominal pain, improved with current medical regimen. 2. History of testicular pain since 2014. 3. Human immunodeficiency virus positive. RECOMMENDATIONS: We discussed treatment options with the patient. He will continue with his current medications. A script for his medications has been renewed. He will call us if he has any concerns. We have discussed the possible complication of these medications in the past which could include dependency as well as tolerance. He would like to continue with the medications. He continues to use them as prescribed. He would like to try tramadol. He takes this and feels that this medication helps to decrease some of the pain and discomfort that he gets from his stomach upset. He has used Zofran. These medications stop him from vomiting and seemed to ____ his discomfort. A script for tramadol has been written. He will take this episodically as needed. We would like to thank you for letting us participate in his care. We hope he continues to improve. By: [id number]. Pablo Lovelace MD /talha
== END ==
LOC: M.PC 05:02
DX: N50.819 Testicular pain, unspecified (principal); R10.9 Unspecified abdominal pain; Z79.899 Other long term (current) drug therapy; Z21 Asymptomatic human immunodeficiency virus [HIV] infection status

== ENCOUNTER → 2018-11-18 | Outpatient (CLI) | payer MEDICARE ==
[~2018-11-18] MED LIST changes: +HYDROCODON-ACE1 EAC7 PO
--- NOTE | ~2018-11-18 | PAINCON ---
[address] [address] PAIN MANAGEMENT CONSULTATION Name: BROOKE SCHERER Room: [facility] Joshua.#: [id number] Admission: 11/18/18 Attend Phys: Mely Lovelace MD Discharge: Date of : 82 Report #: [id number] THIS REPORT FOR: //name// CC: Luke Lovelace DATE OF SERVICE: 11/18/2018 CHIEF COMPLAINT: Here for medication renewal. FOLLOWUP HISTORY: The patient is a 38-year-old gentleman who has been followed in the Pain Clinic. As you recall, he has a problem with abdominal pain. He states that he has an internal infection of some sort. He states that when the organ starts to swell, they "touch." This causes worsening of his pain and discomfort. Overall, he feels his medications are helpful. He rates his pain as 3-4 at this juncture. The patient went to [place], had a good time, noted less need for his medications. Overall, things are going reasonably well. He has had some pain that radiates down into the testicular area. He continues to remain relatively active. Pain is worse with activities, walking, sitting and standing. More problematic when he stays in one position for too long. ALLERGIES: PENICILLIN, PERCOCET. CURRENT MEDICATIONS: Meta 5 mg 1 p.o. q. 4 hours p.r.n. pain, Naprosyn 500 mg b.i.d., Zanaflex 2 mg 1-1/2 tablets, clarithromycin 500 mg b.i.d., doxepin 25 mg, rifabutin 150 mg b.i.d., Viagra 50 mg p.r.n., Prozac 60 mg. PAIN CLINIC ASSESSMENT AND PQRS: 1. The patient is not being treated for osteoarthritis or rheumatoid arthritis. 2. Height 5 feet 10 inches, weight is 209 pounds, BMI is 30. 3. Vital signs: Blood pressure 125/92, heart rate 63, respiratory rate 16, room air saturation 96%, temperature 98.3. 4. Pain intensity: 08/28. 5. Fall history: The patient has not fallen in the last 3 months. 6. Blood thinner: The patient is not on a blood thinning medication. 7. Hypertension. The patient is not being treated for hypertension. 8. Opioids greater than 6 weeks: The patient receives his medication from one source from the Pain Clinic. 9. Risk assessment tool: Low for opioid use. 10. Functional assessment tool. 11. Recreational drug use: The patient denies use of recreational drugs. 12. Tobacco: The patient denies use of tobacco. 13. Alcohol: The patient denies use of alcoholic beverages. PHYSICAL EXAMINATION: GENERAL: The patient is a well-developed, well-nourished, [place] [address] PAIN MANAGEMENT CONSULTATION Name: YOLANDAENDYBROOKE Lorena Room: [facility]#: [id number] Admission: 11/18/18 Attend Phys: Mely Lovelace MD Discharge: Date of : 82 Report #: [id number] appears his stated age. He is alert and oriented x 3. His affect is appropriate. Speech is fluent. HEENT: Normocephalic, atraumatic. Extraocular eye muscles intact. Sclerae nonicteric. NECK: Without adenopathy or JVD. HEART: Regular rate, S1 and S2. LUNGS: Clear to auscultation without rhonchi or rales. ABDOMEN: The patient has some increased pain and discomfort in the abdominal area and testicular area since he has been waiting for our interview. MUSCULOSKELETAL: Upper extremity muscle strength is judged to be 5/5 for the major muscle groups in the upper extremity. Lower extremity muscle strength is judged to be 5/5 for the major muscle groups in the lower extremity. The patient is without significant scoliosis, kyphosis or lordosis. IMPRESSION: 1. History of abdominal pain, improved with current medical regimen. 2. History of testicular pain since 2014. 3. Human immunodeficiency virus (HIV) positive. RECOMMENDATIONS: We discussed treatment options with the patient. The patient has been taking his medications as prescribed. At this juncture, it has been greater than a year he has not had any problems or concerns. We will have the patient's medications extended for an additional month. He will see us on a bimonthly basis. He will call us if he has any concerns. He feels that things are about 80% improved. We will continue with Naprosyn, tizanidine, and hydrocodone medications to help control his pain. We would like to thank you for letting us participate in his care. We hope he continues to improve. By: [id number]. Pablo Lovelace MD /nt
== END ==
LOC: M.PC 05:29
DX: R10.9 Unspecified abdominal pain (principal); B20 Human immunodeficiency virus [HIV] disease; Z88.0 Allergy status to penicillin; Z88.8 Allergy status to other drugs, medicaments and biological substances; Z79.899 Other long term (current) drug therapy; Z79.891 Long term (current) use of opiate analgesic

== ENCOUNTER → 2019-01-13 | Outpatient (CLI) | payer MEDICARE ==
--- NOTE | 2019-01-15 01:32 | PAINCON ---
[address] [address] PAIN MANAGEMENT CONSULTATION Name: BROOKE SCHERER Room: [facility] DarrenMedina.#: [id number] Admission: 01/13/19 Attend Phys: Mely Lovelace MD Discharge: Date of : 84 Report #: [id number] THIS REPORT FOR: //name// CC: Luke Lovelace DATE OF SERVICE: 01/13/2019 CHIEF COMPLAINT: Here for medication renewal. HISTORY: The patient is a 38-year-old gentleman who has been followed in the Pain Clinic because of chronic abdominal pain. He has pain in the abdominal area as well as in the testicular area. As a result of this chronic pain over a number of years, he continues to have pain, which is problematic. He has a burning component in the testicular area and this quieting discomfort in his bowels. He continues to find that his medication regimen is helpful. He has had no complication from the medication since we saw him last. States that he continues to take his medications as prescribed. He feels that the [place], Zanaflex and tramadol are beneficial. Notes that the pain can be exacerbated with certain activities, such as walking, sitting, and standing. Also offered notes that the pain becomes more problematic if he stays in one position for too long. He remains busy with his job. He has returned today for renewal of the medications. ALLERGIES: PENICILLIN, PERCOCET. CURRENT MEDICATIONS: [place] 5 mg one p.o. 4-6 hours p.r.n. pain, Naprosyn 500 mg b.i.d., Zanaflex 2 mg 1-1.5 tablets, clarithromycin 500 mg b.i.d., doxepin 25 mg, rifabutin 150 mg b.i.d., Viagra 50 mg p.r.n., and Prozac 60 mg. PAIN CLINIC ASSESSMENT/PQRS: 1. The patient is not being treated for osteoarthritis or rheumatoid arthritis. 2. Height 5 feet 10 inches, weight 200 pounds, BMI is 28.8. 3. Vital Signs: Blood pressure 118/66, heart rate 70, respiratory rate 16, room air saturation is 98.5. 4. Pain intensity, 10. 5. Fall history: The patient has not fallen in the last 3 months. 6. Blood thinner. The patient is not on a blood thinning medication. 7. Opioids greater than 6 weeks. The patient receives his medication from one source, the Pain Clinic. 8. Risk assessment tool low for opioid use. 9. Functional assessment tool. 10. Recreational drug use. The patient denies use of recreational drugs. 11. Tobacco: The patient denies use of tobacco. 12. Alcohol: The patient [place] [address] PAIN MANAGEMENT CONSULTATION Name: BROOKE SCHERER Room: [facility]#: [id number] Admission: 01/13/19 Attend Phys: Mely Lovelace MD Discharge: Date of : 84 Report #: [id number] PHYSICAL EXAMINATION: GENERAL: The patient is a well-developed, well-nourished white male. He is alert and oriented x 3. Affect is appropriate. Speech is fluent. HEENT: Normocephalic, atraumatic. Extraocular eye muscles intact. Sclerae nonicteric. Mucous membranes are moist. NECK: Without adenopathy or JVD. HEART: Regular rate. S1, S2. ABDOMEN: Nontender at this juncture, has some abdominal discomfort, also has some testicular pain, which he describes as burning. EXTREMITIES: Upper extremity muscle strength is judged to be 5/5 for the major muscle groups in the upper extremity. Lower extremity muscle strength judged to be 5/5 for the major muscle groups in the lower extremity. The patient is without significant scoliosis, kyphosis or lordosis. IMPRESSION: 1. History of abdominal pain, improved with his current medications. 2. History of testicular pain since 2018. 3. Human immunodeficiency virus (HIV positive). RECOMMENDATIONS: We discussed treatment options with the patient. At this juncture, he will continue with his medications. We have had a discussion about opioid use. We explained to the patient that opioid medications are helpful in some situations. They can be less effective over time because of development of tolerance. Overall, he feels his medications are working reasonably well. He is unable to engage in activities of daily living that he would not be able to without their use. He is taking the medication and keeps it in a guarded area. We would like to thank you for letting us participate in his care. He will call us if he has any concerns. <ELECTRONICALLY SIGNED> By: Mely Lovelace MD 01/15/19 0132 [id number] [id number]. Pablo Lovelace MD /talha
== END ==
LOC: M.PC 04:53
DX: R10.9 Unspecified abdominal pain (principal); N50.819 Testicular pain, unspecified; Z21 Asymptomatic human immunodeficiency virus [HIV] infection status; Z79.899 Other long term (current) drug therapy

== ENCOUNTER → 2019-03-10 | Outpatient (CLI) | payer MEDICARE ==
--- NOTE | ~2019-03-10 | PAINCON ---
[address] [address] PAIN MANAGEMENT CONSULTATION Name: BROOKE SCHERER Room: [facility] JACKIERaeann Davila#: [id number] Admission: 03/10/19 Attend Phys: Mely Lovelace MD Discharge: Date of : 84 Report #: [id number] THIS REPORT FOR: //name// CC: Luke Lovelace DATE OF SERVICE: 03/10/2019 CHIEF COMPLAINT: Here for medications. Things are going reasonably well. I was helping my mother move. HISTORY: The patient is a 39-year-old gentleman who has been followed in the pain clinic because of chronic pain. As you recall, he has chronic abdominal pain. He is on a regimen of antibiotics, which are helpful. The patient reports using more pain and instead of taking his antibiotics. As a result of the decrease use of antibiotics, he noticed worsening of his pain. He has noted some increased pain and discomfort. He has had more stress in his life. States that he has noted some increased cramping sensation. Overall, things are going reasonably well. He rates his pain as a 0/10 today. Feels that the [place] medications, Zanaflex and tramadol are beneficial. He feels 100% improvement with their use. He takes his medications as prescribed. Notes that walking, sitting, standing and other activities can be problematic if he performs them for too long. His mother is considering moving. He has been helping her move her from her house and sell it. This has provided some increased stress. He has been outside and noticed that he did get a little dizzy, but this was after giving some blood. Overall, things are going reasonably well. He has returned today for renewal of his medications. ALLERGIES: PENICILLIN, PERCOCET. CURRENT MEDICATIONS: [place] 5 mg one p.o. 4-6 hours p.r.n. pain, Naprosyn 500 mg b.i.d., Zanaflex 2 mg 1-2 tablets, clarithromycin 500 mg b.i.d., doxepin 25 mg, rifabutin 150 mg b.i.d., Viagra 50 mg p.r.n., Prozac 60 mg. PAIN CLINIC ASSESSMENT/PQRS: 1. The patient is not being treated for osteoarthritis or rheumatoid arthritis. 2. Height 5 feet 10 inches, weight is 196 pounds, BMI is 28.2. 3. VITAL SIGNS: Blood pressure 129/75, heart rate 76, respiratory rate 18, room air saturation 98%. 4. Pain intensity is 0/10. 5. Fall history: The patient has not fallen in the last 3 months. 6. Blood thinner. The patient is not on a blood thinning medication. 7. Opioids. The patient takes his medication as prescribed. 8. Risk assessment tool, low for opioid use. 9. Functional assessment tool. 10. Recreational drug use. The patient [place] [address] PAIN MANAGEMENT CONSULTATION Name: BROOKE SCHERER Room: [facility]#: [id number] Admission: 03/10/19 Attend Phys: Mely Lovelace MD Discharge: Date of : 82 Report #: [id number] 11. Tobacco: The patient denies use of tobacco. 12. Alcohol: The patient rarely uses alcoholic beverages. PHYSICAL EXAMINATION: GENERAL: The patient is a well-developed, well-nourished white male. Appears his stated age. He is alert and oriented x 3. His affect is appropriate. Speech is fluent. HEENT: Normocephalic, atraumatic. Extraocular eye muscles are intact. Sclerae nonicteric. Mucous membranes are moist. NECK: Without adenopathy or JVD. HEART: Regular rate. ABDOMEN: Nontender today. He does have some problems with testicular pain and a burning sensation, which has been described in the past. EXTREMITIES: Upper extremity muscle strength judged to be 5/5 for the major muscle groups in the upper extremity. Muscle strength in the lower extremity 5/5. The patient without significant scoliosis, kyphosis or lordosis. The patient is standing and stretching in the room stating that he is experiencing some cramping sensation today. IMPRESSION: 1. History of abdominal pain, improved with his current medications. 2. Testicular pain since 2018. 3. Human immunodeficiency virus (HIV positive). RECOMMENDATIONS: We discussed treatment options with the patient. At this juncture, we will continue with his medications. A script for his medications of hydrocodone 5 mg 1 p.o. daily has been provided. The patient will also continue with tramadol. He will call us if he has any concerns. The patient is aware that opioid medications can become less beneficial as the time goes on secondary to development of tolerance. He states he has taken the medication as prescribed. He finds that use of these medications enable him to be much more active. He rates his pain as a 0/10 today. He will call us if he has any concerns. The patient is aware of overdosing in some patients. We have discussed that 72,000 people as a result of opioid overdoses or drug overdoses in the past. The patient feels that his medications are helpful and are not problematic and he would like to continue with them. A script for his medications has been rewritten. We would like to thank you for letting us participate in his care. We hope he continues to improve. By: [id number]. Pablo Lovelace MD /nt
== END ==
LOC: M.PC 05:17
DX: Z76.0 Encounter for issue of repeat prescription (principal); R10.9 Unspecified abdominal pain; N50.819 Testicular pain, unspecified; Z21 Asymptomatic human immunodeficiency virus [HIV] infection status; Z88.0 Allergy status to penicillin; Z88.8 Allergy status to other drugs, medicaments and biological substances; Z79.899 Other long term (current) drug therapy; Z79.891 Long term (current) use of opiate analgesic

== ENCOUNTER → 2019-04-23 | Outpatient (CLI) | payer MEDICARE ==
--- NOTE | 2019-04-27 11:25 | PAINCON ---
[address] [address] PAIN MANAGEMENT CONSULTATION Name: BROOKE SCHERER Room: [facility] TONY Giovanni#: [id number] Admission: 04/23/19 Attend Phys: Mely Lovelace MD Discharge: Date of : 84 Report #: [id number] THIS REPORT FOR: //name// CC: Luke Lovelace DATE OF SERVICE: 04/23/2019 CHIEF COMPLAINT: Here for medications and I am going to be doing quite a bit of traveling over the next few weeks. HISTORY: The patient is a 39-year-old gentleman who has been followed in the Pain Clinic because of chronic abdominal pain. He has an infection per his report. It causes pain and discomfort in the abdominal area. He is often times treated with an antibiotic regimen. At this point, things are going reasonably well. He rates his pain as a 2-3/10. Feels that the [place] medications, Zanaflex and tramadol continued to be helpful. He has not had any complications with his medications. He does quite a bit of traveling. 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 He is scheduled to go to [facility] back to [place], [place] and a number of other areas in the interim. He feels that his medications are working well and would like to continue their use. There is some amount of stress at home that has improved since we saw him last. Has had some nausea and chills in the past. ALLERGIES: PENICILLIN, PERCOCET. CURRENT MEDICATIONS: [place] 5/325 one p.o. 4-6 hours p.r.n. pain, Naprosyn 500 mg b.i.d., Zanaflex 2 mg 1-2 tablets, clarithromycin 500 mg b.i.d., doxepin 25 mg, rifabutin 150 mg b.i.d., Viagra 50 mg p.r.n., and Prozac 60 mg. PAIN CLINIC ASSESSMENT AND PQRS: 1. The patient is not being treated for osteoarthritis or rheumatoid arthritis. 2. Height 5 feet 10 inches, weight 189 pounds, BMI is 27.2. 3. Vital Signs: Blood pressure 128/79, heart rate 73, respiratory rate 18, room air saturation is 98%, temperature 98.8. 4. Pain intensity score, 3/10. 5. Fall history: The patient has not fallen in the last 3 months. 6. Blood thinner. The patient is not on a blood thinning medication. 7. Opioids. The patient takes medications from one source the Pain Clinic. 8. Risk assessment tool, low for opioid use. 9. Functional assessment tool. 10. Recreational drug use. The patient denies use of recreational drugs. 11. Tobacco: The patient denies use of tobacco. 12. Alcohol: The patient [place] [address] PAIN MANAGEMENT CONSULTATION Name: BROOKE SCHERER Room: [facility]#: [id number] Admission: 04/23/19 Attend Phys: Mely Lovelace MD Discharge: Date of : 82 Report #: [id number] PHYSICAL EXAMINATION: GENERAL: The patient is a well-developed, well-nourished white male. Appears his stated age. He is alert and oriented x 3. Affect is appropriate. Speech is fluent. HEENT: Normocephalic, atraumatic. Extraocular eye muscles intact. Sclerae nonicteric. Mucous membranes are moist. NECK: Without adenopathy or JVD. HEART: Regular rate. ABDOMEN: Nontender. The patient has some problems within the testicular area and notes a burning sensation at times. EXTREMITIES: Upper extremity muscle strength judged to be 5/5 for the major muscle groups in the upper extremity. Lower extremity, the patient has muscle strength of 5/5. The patient is without significant scoliosis, kyphosis or lordosis. IMPRESSION: 1. History of abdominal pain, improved with current medications. 2. Testicular pain since 2018. 3. Human immunodeficiency virus (HIV positive). RECOMMENDATIONS: We discussed treatment options with the patient. Risks and benefits of his medications were discussed. He is aware that opioid medications can be problematic in some patients. They can develop addiction. He is showing no signs of addiction. He is taking the medications as prescribed. He is gainfully employed. 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 A script for his medications has been renewed. The patient will follow up in the near future. Has a number of visits scheduled to [place], [place] and back to [place] on a number of occasions. 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 He is happy with the level of pain control he is receiving at this juncture. We will continue using opioid medications in a complex medical management situation to help control the pain. We would like to thank you for letting us participate in his care. We hope he continues to improve. <ELECTRONICALLY SIGNED> By: Mely Lovelace MD 04/27/19 1125 [id number] [id number]. Pablo Lovelace MD /nt
== END ==
LOC: M.PC 05:11
DX: R10.9 Unspecified abdominal pain (principal); N50.819 Testicular pain, unspecified; Z21 Asymptomatic human immunodeficiency virus [HIV] infection status; Z88.8 Allergy status to other drugs, medicaments and biological substances; Z88.0 Allergy status to penicillin; Z79.899 Other long term (current) drug therapy

== ENCOUNTER 2019-05-21 19:14 | Emergency (ER) | payer MEDICARE ==
[~2019-05-21] VITALS: Ht 180.3 cm; Wt 81.7 kg
[2019-05-21 19:25] VITALS: BP 155/89
[2019-07-02] MEDS ORDERED: TRAMADOL 50 MG50 MG PO (09:27)
[2019-07-02] MEDS ORDERED: TIZANIDINE HCL2 M1 PO (09:27)
[2019-07-02] MEDS ORDERED: NAPROSYN500 MG PO (09:27)
[2019-07-02] MEDS ORDERED: HYDROCODON-ACE1 EAC7 PO ×2 (09:27→09:40)
[2019-07-02] MEDS ORDERED: BIAXIN 500 MG500 M2 PO (09:51)
[2019-07-02] MEDS ORDERED: DOXEPIN HCL PO (09:53)
[2019-07-02] MEDS ORDERED: MYCOBUTIN150 MG PO (09:54)
[2019-07-02] MEDS ORDERED: VIAGRA50 MG PO (09:55)
[2019-07-02] MEDS ORDERED: PROZAC40 MG PO (09:56)
== END 2019-05-21 19:44 ==
LOC: M.ERS 19:14
DX: L30.9 Dermatitis, unspecified (principal); F32.9 Major depressive disorder, single episode, unspecified; Z21 Asymptomatic human immunodeficiency virus [HIV] infection status; Z90.49 Acquired absence of other specified parts of digestive tract; Z88.6 Allergy status to analgesic agent; Z88.5 Allergy status to narcotic agent; Z88.0 Allergy status to penicillin

== ENCOUNTER → 2019-07-02 | Outpatient (CLI) | payer MEDICARE ==
[~2019-07-02] MED LIST changes: +BIAXIN 500 MG500 M2 PO; +DOXEPIN HCL PO; +PROZAC40 MG PO; +TIZANIDINE HCL2 M1 PO
--- NOTE | 2019-07-06 19:22 | PAINCON ---
[address] [address] PAIN MANAGEMENT CONSULTATION Name: BROOKE SCHERER [id number] Admission: 07/02/19 Attend Phys: Mely Lovelace MD Discharge: Date of : 84 Report #: [id number] THIS REPORT FOR: //name// CC: ELIZABETH Lovelace DATE OF SERVICE: 07/02/2019 CHIEF COMPLAINT: Continued abdominal pain and the medications are helping. HISTORY: The patient is a 39-year-old gentleman who has been followed in the pain clinic. As you will recall, he suffers from chronic abdominal pain. This has been particularly problematic. He notes that the pain waxes and wanes. At this point, he feels medications are working reasonably well. He rates his pain as a 2/10. He notes that the pain is throbbing when present. Sitting can be problematic. Lying down sometimes can be problematic as well. He has had this ongoing for a number of years. He continues to be treated with antibiotic regimen. He feels that his current medications of hydrocodone, Naprosyn, tizanidine and tramadol are beneficial. He is able to stay quite active as a result of the pain relief that he gets from these medications. He rates his pain as about 90% improved on the current medications. He would like to have them renewed. ALLERGIES: PENICILLIN, PERCOCET. CURRENT MEDICATIONS: [place] 5/325 one p.o. q.4-6 hours p.r.n., Naprosyn 500 mg b.i.d., Zanaflex 2 mg 1/2 tablet, clarithromycin 500 mg b.i.d., doxepin 25 mg, rifabutin 150 mg b.i.d., Viagra 50 mg p.r.n., Prozac 60 mg. PAIN CLINIC ASSESSMENT/PQRS: 1. The patient is not being treated for osteoarthritis or rheumatoid arthritis. 2. Height 5 feet 10 inches, 188 pounds, BMI is 27. 3. Vital signs: Blood pressure 128/85, heart rate 72, respiratory rate 16, room air saturation is 97%. 4. Pain intensity 97.7. 5. Pain score 2/10. 6. Fall history: The patient has not fallen in the last 3 months. 7. Blood thinner. The patient is not on a blood thinning medication. 8. Hypertension. The patient is not being treated for hypertension. 9. Recreational drug use: The patient denies. 10. Tobacco: The patient denies use of tobacco. 11. Alcohol: The patient rarely drinks alcoholic beverages. PHYSICAL EXAMINATION: GENERAL: The patient is a well-developed, well-nourished [place] [address] PAIN MANAGEMENT CONSULTATION Name: BROOKE SCHERER Room: [facility]#: [id number] Admission: 07/02/19 Attend Phys: Mely Lovelace MD Discharge: Date of : 84 Report #: [id number] appears his stated age. He is alert and oriented x 3. His affect is appropriate. Speech is fluent. HEENT: Normocephalic, atraumatic. Extraocular eye muscles intact. Sclerae nonicteric. Mucous membranes are moist. NECK: Without adenopathy or JVD. HEART: Regular rate. ABDOMEN: Nontender. The patient has some problems in the testicular area as well as in the abdominal area when his pain is problematic. EXTREMITIES: Upper extremity muscle strength judged to be 5/5 for the major muscle groups in the upper extremity. The patient has muscle strength of 5/5 for the major muscle groups in the lower extremity. The patient without significant scoliosis, kyphosis, or lordosis. IMPRESSION: 1. History of abdominal pain. 2. History of testicular pain since 2018. 3. Human immunodeficiency virus (HIV positive). RECOMMENDATIONS: We discussed treatment options with the patient. At this juncture, he feels his medications are working reasonably well. He does not have any problems with it. He is able to engage in activities of daily living without significant compromise. He feels that his pain is a 2/10. He feels that about 90% of his pain is managed with his current regimen. He is aware that opioid medications can be problematic for certain people. He is not having any problems with medications. He is not having any problems with addiction. He has taken the medication as prescribed. Keeps his medications in a guarded area. He would like to continue their use. We will continue the patient's current medical regimen using the opioid medication to help control his pain. A script for his medications of Naprosyn 500 mg 1 p.o. b.i.d. has been written. The patient will continue with tizanidine for muscle spasms 2 mg p.o. b.i.d. He will also continue with the tramadol as needed 50 mg 1 p.o. b.i.d. if needed. We will continue with the hydrocodone 5/325 one p.o. b.i.d. We would like to thank you for letting us participate in his care. We hope he continues to improve. <ELECTRONICALLY SIGNED> By: Mely Lovelace MD 07/06/19 [id number]. Pablo Lovelace MD /talha
== END ==
LOC: M.PC 06-18 09:30
DX: R10.9 Unspecified abdominal pain (principal); Z21 Asymptomatic human immunodeficiency virus [HIV] infection status

== ENCOUNTER → 2019-08-27 | Outpatient (CLI) | payer MEDICARE ==
--- NOTE | ~2019-08-27 | PAINCON ---
[address] [address] PAIN MANAGEMENT CONSULTATION Name: BROOKE SCHERER [id number] Admission: 08/27/19 Attend Phys: Mely Lovelace MD Discharge: Date of : 84 Report #: [id number] THIS REPORT FOR: //name// CC: Luke Lovelace DATE OF SERVICE: 08/27/2019 PRIMARY CARE PHYSICIAN: Luke Demarco MD CHIEF COMPLAINT: Had some abdominal pain for the last few days. HISTORY: The patient is a 39-year-old gentleman who has been followed in the Pain Clinic because of chronic abdominal pain. He has noticed that his pain has been more problematic over the last week or so. He was in [place]. He was hospitalized in [place] because of abdominal pain. He describes it as his abdomen is hot, but the rest of his body is cold. He was using heating elements as well as blankets, but still felt really cold. He denies symptoms consistent with the flu. He does not feel he has had the flu. Notes that his pain would become so acute in his abdomen that he would become nauseated and would feel as though he was going to throw up. He feels that the pain is in the abdominal area. He generally has pain on the left as well as the right side. This pain is in about the usual area. He also notes some pain that can progress down into the area of the groin. He did fly back to [place] on an airplane yesterday. Noticed that this was quite traumatic. He felt that he was going to throw up on a number of occasions. Feels that for the last 10 days, he has felt dizzy. He has been making sure that his fluid intake has been adequate. He has returned to work. He has been using his hydrocodone medication. Has been taking about 2-1/2 tablets per day. Pain can be problematic with sitting. Also, notes some pain with lying down. ALLERGIES: PENICILLIN, PERCOCET. CURRENT MEDICATIONS: [place] 5/325 one p.o. q.4-6 hours p.r.n., Naprosyn 500 mg b.i.d., Zanaflex 2 mg 1/2 tablet, clarithromycin 500 mg b.i.d., doxepin 25 mg, rifabutin 150 mg b.i.d., Viagra p.r.n. Prozac 60 mg. PAIN CLINIC ASSESSMENT AND PQRS: 1. The patient is not being treated for osteoarthritis or rheumatoid arthritis. 2. Height 5 feet 10 inches, weight 179 pounds, BMI 25. 3. Vital Signs: Blood pressure 136/87, heart rate 72, respiratory rate 18, room air saturation is 97%, temperature is 97.9. The patient's pain score is 3-4/10. He has been working to decrease his weight. He is about [address] [place] [address] PAIN MANAGEMENT CONSULTATION Name: YOLANDAENDYBROOKE Room: [facility]#: [id number] Admission: 08/27/19 Attend Phys: Mely Lovelace MD Discharge: Date of : 84 Report #: [id number] than at his last visit. 4. Fall history: The patient has not fallen in the last 3 months. 5. Blood thinner: The patient is not on a blood thinning medication. 6. Hypertension: The patient is not being treated for hypertension. 7. Recreational drug use: The patient denies. 8. Tobacco: The patient denies. 9. Alcohol: The patient rarely drinks alcoholic beverages. PHYSICAL EXAMINATION: GENERAL: The patient is a well-developed, well-nourished white male. He appears his stated age. He is alert and oriented x 3. His affect is appropriate. Speech is fluent. HEENT: Normocephalic, atraumatic. Extraocular eye muscles intact. Sclerae nonicteric. Mucous membranes are moist. NECK: Without adenopathy or JVD. HEART: Regular. ABDOMEN: Tender on the left and the right paraumbilical areas. Has some pain in the groin area and the testicular area as well. EXTREMITIES: Upper extremity muscle strength judged to be 5/5 for the major muscle groups in the upper extremity. Lower extremity muscle strength 5/5 for the major muscle groups in the lower extremity. The patient without significant scoliosis, kyphosis or lordosis. IMPRESSION: 1. History of abdominal pain, which has become more problematic over the last 10 days. The patient has been hospitalized because of it in [place]. 2. History of testicular pain since 2018. 3. Human immunodeficiency virus (HIV positive). RECOMMENDATIONS: We discussed treatment options with the patient. At this juncture, we will continue with his medications. A script for the hydrocodone 5/325 one p.o. q.i.d. have been written. The patient will continue to take his tizanidine. He does not feel that this is causing a problem. He has tried tramadol and finds it somewhat helpful. Naprosyn 500 mg. The patient does not feel that this is secondary to a gastrointestinal pain associated with his nonsteroidal. We will increase his hydrocodone from 30 tablets per month to 60 tablets in this interim. Hopefully, he will continue to improve. His pain/symptomatology is somewhat of an enigma. We would recommend that he see his HIV doctor who might be able to shed some light on the subject. We are not sure exactly what is going on at this juncture. He will call us if he has any concerns. He will go to the Emergency Room should he feel that [place] [address] PAIN MANAGEMENT CONSULTATION Name: YOLANDAENDYBROOKE Lorena Room: [facility]#: [id number] Admission: 08/27/19 Attend Phys: Mely Lovelace MD Discharge: Date of : 82 Report #: [id number] We would like to thank you for letting us participate in his care. We hope he continues to improve. By: [id number]. Pablo Lovelace MD /nt
== END ==
LOC: M.PC 11:37
DX: R10.9 Unspecified abdominal pain (principal); Z88.0 Allergy status to penicillin; G89.29 Other chronic pain; Z88.8 Allergy status to other drugs, medicaments and biological substances; Z79.899 Other long term (current) drug therapy

== ENCOUNTER → 2019-12-31 | Outpatient (CLI) | payer MEDICARE ==
--- NOTE | 2020-01-13 15:49 | PAINCON ---
[address] [address] PAIN MANAGEMENT CONSULTATION Name: YOLANDAENDYBROOKE Room: [facility]..#: [id number] Admission: 12/31/19 Attend Phys: Mely Lovelace MD Discharge: Date of : 84 Report #: [id number] THIS REPORT FOR: //name// cc: Luke Demarco MD, David L. MD ~ THIS REPORT FOR: //name// CC: Luke Lovelace DATE OF SERVICE: 12/31/2019 FOLLOWUP COMPLAINT: Abdominal pain is helped with the medication. HISTORY: The patient is a 39-year-old gentleman who has been followed in the pain clinic. As you recall, he has chronic abdominal pain. He has had this for some time. 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 He notes that his medications have been helpful. 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 He feels that his medications are helpful. He rates his pain today as a 1/10. He feels his medications provided at least 50% improvement in his pain. Pain can be more problematic when he is sitting. He feels that his medications are helpful. Rest can be beneficial as well. He has returned today and would like to renew his medications. ALLERGIES: PENICILLIN, PERCOCET. CURRENT MEDICATIONS: [place] 5 mg 1 p.o. q.4-6 hours p.r.n., Naprosyn 500 mg b.i.d., Zanaflex 2 mg 1/2 tablet, clarithromycin 500 mg b.i.d., doxepin 25 mg, rifabutin 150 mg b.i.d., Viagra p.r.n., Prozac 60 mg. PAIN CLINIC ASSESSMENT AND PQRS: 1. The patient is not being treated for osteoarthritis or rheumatoid arthritis. 2. Height 5 feet 10 inch, weight 175 pounds, BMI is 25. 3. Vital Signs: Blood pressure 132/82, heart rate 61, respiratory rate 16, room air saturation 97%, temperature 98.8. 4. Pain intensity, 08/28. 5. Fall history. The patient has not fallen in the last 3 months. 6. Blood thinner. The patient is not on a blood thinning medication. 7. Hypertension. The patient is not being treated for hypertension. 8. Recreational drug use. The patient denies. 9. Tobacco. The patient denies. 10. Alcohol. The patient rarely drinks alcoholic beverages. PHYSICAL EXAMINATION: GENERAL: The patient is a well-developed, well-nourished, [place] [address] PAIN MANAGEMENT CONSULTATION Name: BROOKE SCHERER Room: [facility]#: [id number] Admission: 12/31/19 Attend Phys: Mely Lovelace MD Discharge: Date of : 84 Report #: [id number] his stated age. He is alert and oriented x 3. His affect is appropriate. Speech is fluent. HEENT: Normocephalic, atraumatic. Extraocular eye muscles intact. Sclerae nonicteric. Mucous membranes are moist. NECK: Without adenopathy or JVD. HEART: Regular rate. ABDOMEN: Nontender at this point. Does have some pain in the left and right paraumbilical area with the pain is problematic. Has some pain in the groin area and in the testicular area as well. MUSCULOSKELETAL: Lower extremity muscle strength judged to be 5/5 for the major muscle groups in the lower extremity. The patient without significant scoliosis, kyphosis or lordosis. IMPRESSION: 1. History of abdominal pain. The patient has not been hospitalized since that hospitalization at [place] in about August. 2. History of testicular pain since 2018. 3. Human immunodeficiency virus (HIV positive). RECOMMENDATIONS: We discussed treatment with the patient. At this juncture, he feels medications are working relatively well. We will continue with his current script. A script for hydrocodone 5 mg 1 p.o. q.i.d. has been written. The patient will also use tizanidine for muscle relaxants. He will use tramadol p.r.n. The patient will also continue with Naprosyn. He will monitor his GI tract. Should he notices some irritation, he will stop using nonsteroidal anti-inflammatory medication. He will continue to follow up with his HIV doctor. We would like to thank you for letting us participate in his care. We hope he continues to improve. A script for his medications for the next 2 months have been provided. <ELECTRONICALLY SIGNED> By: Mely Lovelace MD 01/13/20 1549 2250 [id number]. Pablo Lovelace MD /[facility]
== END ==
LOC: M.PC 11-10 09:10
DX: B20 Human immunodeficiency virus [HIV] disease (principal); F11.20 Opioid dependence, uncomplicated; Z87.438 Personal history of other diseases of male genital organs; Z88.0 Allergy status to penicillin; Z88.8 Allergy status to other drugs, medicaments and biological substances; Z79.899 Other long term (current) drug therapy

== ENCOUNTER → 2020-03-03 | Outpatient (CLI) | payer MEDICARE ==
--- NOTE | 2020-03-17 22:53 | PAINCON ---
[address] [address] PAIN MANAGEMENT CONSULTATION Name: BROOKE SCHERER Room: [facility] DarrenMedina.#: [id number] Admission: 03/03/20 Attend Phys: Mely Lovelace MD Discharge: Date of : 84 Report #: [id number] THIS REPORT FOR: //name// cc: Luke Demarco MD, David L. MD ~ THIS REPORT FOR: //name// CC: Luke Lovelace DATE OF SERVICE: 03/03/2020 FOLLOWUP COMPLAINT: Medicine still helps with the abdominal pain. HISTORY: The patient is a 40-year-old gentleman who has been followed in the pain clinic because of chronic abdominal pain. He has continued to have abdominal pain, which has been problematic for a number of years. He is using antibiotics. 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 He feels that this might be contributing to his increased abdominal discomfort. He rates his pain as a 4-5/10. 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 He is unable to fly because of the COVID-19 pandemic. He finds that tizanidine continues to be helpful. It was more effective while ago. At this juncture, it is not quite as effective. He has been using tramadol in conjunction with the [place]. He feels that his pain is between 80-100% improved. He is 100% improved with use of [place]. He would like to have his medications renewed. Pain is worse when he is sitting, lifting, bending and driving has exacerbated his discomfort as well. He has returned today for renewal of his medications. ALLERGIES: PENICILLIN, PERCOCET. CURRENT MEDICATIONS: [place] 5 mg 1 p.o. every 4 - 6 hours, Naprosyn 500 mg b.i.d., Zanaflex 2 mg 1/2 tablet, clarithromycin 500 mg b.i.d., doxepin 25 mg, rifabutin 150 mg b.i.d., Viagra p.r.n., and Prozac 60 mg. PAIN CLINIC ASSESSMENT AND PQRS: 1. The patient is not being treated for osteoarthritis or rheumatoid arthritis. 2. Height 5 feet 10 inch, weight 175 pounds, BMI is 25. 3. Vital Signs: Blood pressure 120/86, heart rate 72, respiratory rate 16, room air saturation 99%, and temperature 98.4. 4. Pain intensity is 4-5/10. 5. Fall history: The patient has not fallen in the last 3 months. 6. Blood thinner. The patient is not on a blood thinning medication. 7. Hypertension. The patient is not being treated for hypertension. 8. Recreational drug use. [place] [address] PAIN MANAGEMENT CONSULTATION Name: BROOKE SCHERER Room: [facility]#: [id number] Admission: 03/03/20 Attend Phys: Mely Lovelace MD Discharge: Date of : 84 Report #: [id number] 9. Tobacco: The patient denies. 10. Alcohol: The patient rarely drinks alcoholic beverages. PHYSICAL EXAMINATION: GENERAL: The patient is a well-developed, well-nourished white male. Appears his stated age. He is alert and oriented x 3. His affect is appropriate. Speech is fluent. HEENT: Normocephalic, atraumatic. Extraocular eye muscles intact. Sclerae nonicteric. Mucous membranes are moist. NECK: Without adenopathy or JVD. HEART: Regular rate. LUNGS: Clear. ABDOMEN: Nontender, but has some generalized pain and discomfort in the abdominal area. He has pain in the groin and testicular area as well. MUSCULOSKELETAL: Lower extremity muscle strength judged to be 5/5 for the major muscle groups in the lower extremity. The patient is without significant scoliosis, kyphosis or lordosis. IMPRESSION: 1. History of abdominal pain. The patient has not been hospitalized since hospitalization in [place] in ____. 2. History of testicular pain since 2018. 3. Human immunodeficiency virus (HIV positive). RECOMMENDATIONS: We discussed treatment options with the patient. At this juncture, we will continue with his medications. A script for renewal of his medications have been provided. The patient will continue with hydrocodone 5/325 one p.o. b.i.d. He will also continue with Naprosyn 500 mg b.i.d. The patient has tramadol 50 mg 1 p.o. t.i.d. Tizanidine 2 mg b.i.d. for muscle spasms. The patient will call us if he has any concerns. He finds that driving has exacerbated his discomfort. 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 Hopefully, he will continue to notice an improvement in his condition. He will call us if he has any concerns. We would like to thank you for letting us participate in his care. A script for 2 months of medications have been provided. <ELECTRONICALLY SIGNED> By: Mely Lovelace MD 03/17/20 2253 50 [id number]. Pablo Lovelace MD /talha
== END ==
LOC: M.PC 02-25 08:30
PROVIDERS: ATTEND Anesthesiology Pain Medicine
DX: B20 Human immunodeficiency virus [HIV] disease (principal); R10.9 Unspecified abdominal pain; N50.819 Testicular pain, unspecified

== ENCOUNTER 2020-03-30 14:02 | Emergency (ER) | payer MEDICARE ==
[~2020-03-30] VITALS: Ht 177.8 cm; Wt 79.8 kg
[2020-03-30] MEDS ORDERED: CIPRO500 M1 PO (14:38)
[2020-03-30 15:08] LABS: ABSOLUTE BASOPHILS 0.1 thou/uL (0.0-0.2); ABSOLUTE EOSINOPHILS 0.1 thou/uL (0.0-0.7); ABSOLUTE LYMPHOCYTES 1.8 thou/uL (0.8-5.3); ABSOLUTE MONOCYTES 0.5 thou/uL (0.0-1.2); BASOPHILS 1.4 %; HEMATOCRIT 42.1 % (42.0-52.0); HEMOGLOBIN 15.2 gm/dL (14.0-18.0); LYMPHOCYTES 40.4 %; MCH 30.1 pg (26.0-34.0); MCV 83.5 fL (80.0-100.0); MONOCYTES 10.5 %; MPV 8.6 fl. (7.2-11.1); NUCLEATED RBCS 0 /100WBC; PLATELET COUNT* 139 thou/uL (150-400); POLYS 44.7 %; RBC 5.04 mil/uL (4.50-6.00); WBC 4.5 thou/uL (4.0-11.0)
[2020-03-30 15:10] LABS: URINE BILIRUBIN NEGATIVE (Negative); URINE BLOOD NEGATIVE (Negative); URINE CLARITY CLEAR; URINE COLOR YELLOW; URINE GLUCOSE-RANDOM NEGATIVE (Negative); URINE KETONES NEGATIVE (Negative); URINE LEUKOCYTES-REFLEX NEGATIVE (Negative); URINE NITRITE-REFLEX NEGATIVE (Negative); URINE PROTEIN NEGATIVE (Negative); URINE UROBILINOGEN 0.2 E.U./dl (0.2-1.0)
[2020-03-30 15:19] LABS: CALCIUM 8.7 mg/dL (8.5-10.1); CREATININE 0.9 mg/dL (0.6-1.3); POTASSIUM 3.1 mmol/L (3.5-5.1)
[2020-03-30 15:23] LABS: ALBUMIN 4.4 g/dL (3.4-5.0); TOTAL BILIRUBIN 0.5 mg/dL (<0.1-1.0); TOTAL PROTEIN 8.1 g/dL (6.4-8.2)
[2020-03-30 16:48] VITALS: BP 132/70
--- NOTE | 2020-03-30 16:48 | EKG ---
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 03/30/20 1648 1504 1504 Luke Thompson MD, [facility]ACC /EPI
== END 2020-03-30 16:54 | disposition home or self-care (01) ==
LOC: M.ERS 14:02
PROVIDERS: Physician Assistant
DX: R10.84 Generalized abdominal pain (principal); R42 Dizziness and giddiness; F32.9 Major depressive disorder, single episode, unspecified; Z90.49 Acquired absence of other specified parts of digestive tract; Z21 Asymptomatic human immunodeficiency virus [HIV] infection status; Z88.0 Allergy status to penicillin; Z88.6 Allergy status to analgesic agent

== ENCOUNTER → 2020-04-28 | Outpatient (CLI) | payer MEDICARE ==
[~2020-04-28] MED LIST changes: +CIPRO500 M1 PO; +TRANSDERM-SCOP1 EACH TRANSDERM
--- NOTE | 2020-05-12 08:38 | PAINCON ---
[facility] [address] [place] [address] PAIN MANAGEMENT CONSULTATION Name: BROOKE SCHERER Room: [facility].#: [id number] Admission: 04/28/20 Attend Phys: Mely Lovelace MD Discharge: Date of : 84 Report #: [id number] THIS REPORT FOR: //name// cc: Bud Hutchison MD, Joseph W. MD ~ THIS REPORT FOR: //name// CC: Dr. Luke Lovelace DATE OF SERVICE: 04/28/2020 CHIEF COMPLAINT: Chronic abdominal pain. HISTORY: The patient is a 40-year-old gentleman who has been followed in the pain clinic because of chronic abdominal pain. Notes his pain continues to be problematic. He has taken antibiotics and medications for a number of years. He rates his pain today as a 5-6/10. Notes some pain in the abdominal area as well as in the groin area. He has returned today for renewal of his medications. He travels. He is concerned about the COVID-19 pandemic. Finds that his medications continue to be helpful. Notes his pain is worse with certain activities such as sitting, lifting and bending. He is considering increasing his travel. ALLERGIES: PENICILLIN, PERCOCET. CURRENT MEDICATIONS: [place] 5 mg 1 p.o. q.4-6 hours, Naprosyn 500 mg b.i.d., Zanaflex 2 mg 1/2 tablet, clarithromycin 500 mg b.i.d., doxepin 25 mg, rifabutin 150 mg b.i.d., Viagra p.r.n., Prilosec 60 mg. PAIN CLINIC ASSESSMENT AND PQRS: 1. The patient is not being treated for osteoarthritis or rheumatoid arthritis. 2. Height 5 feet 10 inches, weight 182 pounds, BMI is 26. 3. Vital Signs: Blood pressure 135/79, heart rate 88, respiratory rate 16, room air saturation 97%, temperature 97.6. 4. Pain intensity, 01/26. 5. Fall history. The patient has not fallen in the last 3 months. 6. Blood thinner. The patient is not on a blood thinning medication. 7. Hypertension. The patient is not being treated for hypertension. 8. Recreational drug use. The patient denies use of recreational drugs. 9. Tobacco. The patient denies use of tobacco. 10. Alcohol. The patient rarely drinks alcoholic beverages. PHYSICAL EXAMINATION: GENERAL: The patient is a well-developed, well-nourished, [place] [address] PAIN MANAGEMENT CONSULTATION Name: BROOKE SCHERER Room: [facility]#: [id number] Admission: 04/28/20 Attend Phys: Mely Lovelace MD Discharge: Date of : 84 Report #: [id number] his stated age. He is alert and oriented x 3. His affect is appropriate. Speech is fluent. HEENT: Normocephalic, atraumatic. Extraocular eye muscles intact. The patient is wearing a facial covering. NECK: Without adenopathy or JVD. HEART: Regular rate. LUNGS: Clear. ABDOMEN: With some tenderness and discomfort in the area of the groin as well. MUSCULOSKELETAL: Strength judged to be 5/5 for the major muscle groups in the upper extremity and lower extremity. The patient without significant scoliosis, kyphosis or lordosis. IMPRESSION: 1. History of abdominal pain. The patient has not been hospitalized for some time. 2. History of testicular pain since 2018. 3. Human immunodeficiency virus (HIV positive). RECOMMENDATIONS: We discussed treatment options with the patient. At this juncture, we will continue with his medications. He feels medications are helpful. He is concerned about the COVID-19 pandemic. 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 He may do more traveling in his automobile. He would like to have his medications renewed. A script for tramadol 50 mg 1 p.o. t.i.d. has been provided. The patient will also continue with tizanidine 2 mg b.i.d. when he experiences muscle spasms. A script for hydrocodone 5/325 1 p.o. b.i.d. has been provided. We would like to thank you for letting us participate in his care. We hope he continues to improve. <ELECTRONICALLY SIGNED> By: Mely Lovelace MD 05/12/20 0838 2224 [id number]. Pablo Lovelace MD /[facility]
== END ==
LOC: M.PC 08:33
PROVIDERS: ATTEND Anesthesiology Pain Medicine
DX: R10.9 Unspecified abdominal pain (principal); G89.29 Other chronic pain; B20 Human immunodeficiency virus [HIV] disease; Z87.438 Personal history of other diseases of male genital organs; Z88.8 Allergy status to other drugs, medicaments and biological substances; Z79.899 Other long term (current) drug therapy

== ENCOUNTER 2020-05-05 11:56 | Emergency (ER) | payer MEDICARE ==
[~2020-05-05] VITALS: Ht 177.8 cm; Wt 79.8 kg
[~2020-05-05 11:56] MED LIST changes: -TRANSDERM-SCOP1 EACH TRANSDERM
[2020-05-05 12:33] LABS: CALCIUM 8.7 mg/dL (8.5-10.1); POTASSIUM 3.4 mmol/L (3.5-5.1)
[2020-05-05 12:37] LABS: TOTAL BILIRUBIN 0.5 mg/dL (<0.1-1.0); TOTAL PROTEIN 7.7 g/dL (6.4-8.2)
[2020-05-05 12:56] LABS: HEMATOCRIT 41.9 % (42.0-52.0); HEMOGLOBIN 15.2 gm/dL (14.0-18.0); MCH 30.2 pg (26.0-34.0); MCHC 36.2 g/dL (28.0-37.0); MCV 83.3 fL (80.0-100.0); MPV 8.5 fl. (7.2-11.1); NUCLEATED RBCS 0 /100WBC; PLATELET COUNT* 137 thou/uL (150-400); RBC 5.03 mil/uL (4.50-6.00); RDW-CV 13.1 % (10.5-14.5); WBC 4.9 thou/uL (4.0-11.0)
[2020-05-05 13:15] LABS: URINE BILIRUBIN NEGATIVE (Negative); URINE BLOOD NEGATIVE (Negative); URINE CLARITY CLEAR; URINE COLOR YELLOW; URINE GLUCOSE-RANDOM NEGATIVE (Negative); URINE KETONES NEGATIVE (Negative); URINE LEUKOCYTES-REFLEX NEGATIVE (Negative); URINE NITRITE-REFLEX NEGATIVE (Negative); URINE PROTEIN NEGATIVE (Negative); URINE SPECIFIC GRAVITY >= 1.030 (1.005-1.030); URINE UROBILINOGEN 0.2 E.U./dl (0.2-1.0)
[2020-05-05 13:31] LABS: ABSOLUTE EOSINOPHILS 0.1 thou/uL (0.0-0.7); ABSOLUTE LYMPHOCYTES 1.6 thou/uL (0.8-5.3); ABSOLUTE MONOCYTES 0.4 thou/uL (0.0-1.2); ABSOLUTE NEUTROPHILS 2.7 thou/uL (1.6-8.1)
[2020-05-05 13:32] LABS: PLATELET ESTIMATE DECREASED
[2020-05-05] MEDS ORDERED: TRANSDERM-SCOP1 EACH TRANSDERM (15:41)
[2020-05-05 15:50] VITALS: BP 127/72
== END 2020-05-05 15:36 | disposition home or self-care (01) ==
LOC: M.ERS 11:56
PROVIDERS: Physician Assistant
DX: R10.9 Unspecified abdominal pain (principal); R42 Dizziness and giddiness; R11.0 Nausea; Z88.6 Allergy status to analgesic agent; Z88.0 Allergy status to penicillin

== ENCOUNTER → 2020-06-23 | Outpatient (CLI) | payer MEDICARE ==
[~2020-06-23] MED LIST changes: +TRANSDERM-SCOP1 EACH TRANSDERM
--- NOTE | ~2020-06-23 | PAINCON ---
[address] [address] PAIN MANAGEMENT CONSULTATION Name: BROOKE SCHERER Room: [facility] Giovanni#: [id number] Admission: 06/23/20 Attend Phys: Mely Lovelace MD Discharge: Date of : 84 Report #: [id number] THIS REPORT FOR: //name// cc: Bud Hutchison MD, Joseph W. MD ~ CC: Bud Lovelace DATE OF SERVICE: 06/23/2020 CHIEF COMPLAINT: "I have been in the hospital a couple of times because of abdominal pain." HISTORY: The patient is a 40-year-old gentleman who has been followed in the Pain Clinic because of chronic pain involving his abdomen. He recently was hospitalized. States that he has been in the hospital a couple of times since we saw him last. He has been having some problems with abdominal pain. States that his internal organs have swollen up. He has been having some problems with dizziness. 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 He has not been able to engage in his business as he would like because of the symptoms and problems he is having. The business is in [place]. He has not been able to travel much. He has found that the meclizine and Patch Scopolamine have been helpful with the nausea and vomiting. Overall, his pain today is a 2/10. He is hopeful that they will find what the cause of his problems are. He is scheduled to have an EGD in the next few days. Has had some internal bleeding. Had a COVID-19 test yesterday. ALLERGIES: PENICILLIN, PERCOCET. CURRENT MEDICATIONS: [place] 5 mg 1 p.o. q. 4-6 hours, Naprosyn 500 mg b.i.d., Zanaflex 2 mg one-half tablet, clarithromycin 500 mg b.i.d. The patient was not taking this medication a while ago, doxepin 25 mg, rifabutin 150 mg b.i.d., Viagra p.r.n., Prilosec 60 mg. PAIN CLINIC ASSESSMENT/PQRS: 1. The patient is not being treated for osteoarthritis or rheumatoid arthritis. 2. Height 5 feet 10 inches, weight 182 pounds, BMI is 26.6. 3. Vital signs: Blood pressure is 141/95, heart rate 76, respiratory rate 16, room air saturation is 96%, temperature 98.0. 4. Pain intensity, 2/10. 5. Fall history: The patient has not fallen, but does feel somewhat dizzy. 6. Blood thinner. The patient is not on a blood thinning medication. 7. Hypertension. The patient is not being treated for hypertension. 8. Opioids. The patient receives medication from one source the Pain Clinic. 9. Risk assessment tool, [place] [address] PAIN MANAGEMENT CONSULTATION Name: BROOKE SCHERER Room: [facility] Giovanni#: [id number] Admission: 06/23/20 Attend Phys: Mely Lovelace MD Discharge: Date of : 84 Report #: [id number] 10. Functional assessment tool reviewed. 11. Recreational drug use: The patient denies. 12. Alcohol. The patient denies frequent use of alcoholic beverages. PHYSICAL EXAMINATION: GENERAL: The patient is a well-developed, well-nourished white male. Appears his stated age. He is alert and oriented x 3. His affect is appropriate. Speech is fluent. HEENT: Normocephalic, atraumatic. Extraocular eye muscles intact. The patient is wearing a facial covering. HEART: Regular rate. LUNGS: Clear. ABDOMEN: Notes some abdominal pain and tenderness. MUSCULOSKELETAL: Without significant scoliosis, kyphosis or lordosis. Upper extremity muscle strength 5/5 for the major muscle groups in the upper extremity and lower extremity muscle strength 5/5 for the major muscle groups in the lower extremity. IMPRESSION: 1. History of abdominal pain. He has been to the Emergency Room and hospitalized about 3 times since we saw him last. 2. History of testicular pain since 2018. 3. Human immunodeficiency virus positive. 4. Feeling of dizziness and abdominal pain. RECOMMENDATIONS: We discussed treatment options. The patient will continue with his current medications of hydrocodone 5 mg 1 p.o. q. 4-6 hours. The patient will also continue with tramadol 50 mg q. 4-6 hours. The patient will continue with tizanidine 2 mg 1 p.o. b.i.d. He feels that his pain is about 90% improved with his current medical regimen. He will call us if he has any concerns. Hopefully, they will find out what is causing his GI upset. He is scheduled for a colonoscopy in the near future. We would like to thank you for letting us participate in his care. By: 0949 1655N. Pablo Lovelace MD /talha
== END ==
LOC: M.PC 08:30
PROVIDERS: ATTEND Anesthesiology Pain Medicine
DX: R10.9 Unspecified abdominal pain (principal); B20 Human immunodeficiency virus [HIV] disease; R42 Dizziness and giddiness; Z87.438 Personal history of other diseases of male genital organs; Z88.8 Allergy status to other drugs, medicaments and biological substances; Z79.899 Other long term (current) drug therapy

== ENCOUNTER → 2020-08-16 | Outpatient (CLI) | payer MEDICARE | LOC: M.PC 09:36 | PROVIDERS: ATTEND Anesthesiology Pain Medicine | DX: G89.29 Other chronic pain (principal); R10.9 Unspecified abdominal pain; B20 Human immunodeficiency virus [HIV] disease; Z88.0 Allergy status to penicillin; Z88.8 Allergy status to other drugs, medicaments and biological substances; Z68.26 Body mass index [BMI] 26.0-26.9, adult; Z79.891 Long term (current) use of opiate analgesic ==

== ENCOUNTER 2020-09-15 12:34 | Emergency (ER) | payer MEDICARE ==
[~2020-09-15] VITALS: Ht 177.8 cm; Wt 81.7 kg
[2020-09-15] MEDS ORDERED: TRIAMCINOLONE A80 G2 TOP (13:06)
[2020-09-15 13:20] VITALS: BP 161/96
== END 2020-09-15 13:28 | disposition home or self-care (01) ==
LOC: M.ERS 12:34
DX: L53.9 Erythematous condition, unspecified (principal); R21 Rash and other nonspecific skin eruption; G89.29 Other chronic pain; Z88.6 Allergy status to analgesic agent; Z88.0 Allergy status to penicillin; Z88.5 Allergy status to narcotic agent; Z90.49 Acquired absence of other specified parts of digestive tract

== ENCOUNTER → 2020-10-11 | Outpatient (CLI) | payer MEDICARE ==
[~2020-10-11] MED LIST changes: +TRIAMCINOLONE A80 G2 TOP
== END ==
LOC: M.PC 09:13
PROVIDERS: ATTEND Anesthesiology Pain Medicine
DX: G89.29 Other chronic pain (principal); F32.9 Major depressive disorder, single episode, unspecified; R10.9 Unspecified abdominal pain

== ENCOUNTER → 2020-12-06 | Outpatient (CLI) | payer MEDICARE | LOC: M.PC 08:56 | PROVIDERS: ATTEND Anesthesiology Pain Medicine | DX: R10.9 Unspecified abdominal pain (principal); G89.29 Other chronic pain; R42 Dizziness and giddiness; Z87.438 Personal history of other diseases of male genital organs ==

== ENCOUNTER → 2021-01-04 | Outpatient (CLI) | payer MEDICARE ==
[~2021-01-04] MED LIST changes: +BENTYL 10 MG CA10 M1 PO; +MECLIZINE HCL25 M1 PO; +XANAX 0.5 MG0.5 MG PO; +ZOFRAN ODT4 MG DISSOLVE
[2021-01-04 12:31] LABS: CSF GLUCOSE 51 mg/dl (40-70); CSF PROTEIN 73.3 mg/dl (15-45)
[2021-01-04 12:46] LABS: CSF CLARITY CLEAR; CSF COLOR COLORLESS; CSF RBC 1 /mm3; CSF WBC 1 /mm3 (0-10); VOLUME 11 ml
== END | disposition home or self-care (01) ==
LOC: M.RAD 09:58
PROVIDERS: ATTEND Specialist
DX: R42 Dizziness and giddiness (principal); Z21 Asymptomatic human immunodeficiency virus [HIV] infection status; A31.9 Mycobacterial infection, unspecified; Z79.899 Other long term (current) drug therapy; Z88.0 Allergy status to penicillin; Z88.8 Allergy status to other drugs, medicaments and biological substances

== ENCOUNTER 2021-01-05 09:18 | Emergency (ER) | payer MEDICARE ==
[~2021-01-05] VITALS: Ht 177.8 cm; Wt 84.4 kg
[~2021-01-05 09:18] MED LIST changes: -BENTYL 10 MG CA10 M1 PO; -MECLIZINE HCL25 M1 PO; -XANAX 0.5 MG0.5 MG PO; -ZOFRAN ODT4 MG DISSOLVE
[2021-01-05] MEDS ORDERED: MECLIZINE HCL25 M1 PO (09:37)
[2021-01-05 10:13] LABS: URINE BILIRUBIN NEGATIVE (Negative); URINE BLOOD NEGATIVE (Negative); URINE CLARITY CLEAR; URINE COLOR YELLOW; URINE GLUCOSE-RANDOM NEGATIVE (Negative); URINE KETONES NEGATIVE (Negative); URINE LEUKOCYTES-REFLEX NEGATIVE (Negative); URINE NITRITE-REFLEX NEGATIVE (Negative); URINE PROTEIN NEGATIVE (Negative); URINE SPECIFIC GRAVITY <= 1.005 (1.005-1.030); URINE UROBILINOGEN 0.2 E.U./dl (0.2-1.0)
[2021-01-05 10:14] LABS: ABSOLUTE EOSINOPHILS 0.1 thou/uL (0.0-0.7); ABSOLUTE LYMPHOCYTES 1.6 thou/uL (0.8-5.3); ABSOLUTE MONOCYTES 0.5 thou/uL (0.0-1.2); ABSOLUTE NEUTROPHILS 2.1 thou/uL (1.6-8.1); BASOPHILS 1.1 %; EOSINOPHILS 1.8 %; HEMATOCRIT 42.5 % (42.0-52.0); MCH 30.5 pg (26.0-34.0); MCHC 35.3 g/dL (28.0-37.0); MCV 86.5 fL (80.0-100.0); MONOCYTES 11.3 %; MPV 8.3 fl. (7.2-11.1); NUCLEATED RBCS 0 /100WBC; PLATELET COUNT* 139 thou/uL (150-400); POLYS 48.8 %; RBC 4.92 mil/uL (4.50-6.00); WBC 4.4 thou/uL (4.0-11.0)
[2021-01-05 10:22] LABS: CALCIUM 8.8 mg/dL (8.5-10.1); CREATININE 1.1 mg/dL (0.6-1.3)
[2021-01-05 10:27] LABS: ALBUMIN 3.9 g/dL (3.4-5.0); TOTAL BILIRUBIN 0.4 mg/dL (<0.1-1.0); TOTAL PROTEIN 7.9 g/dL (6.4-8.2)
[2021-01-05] MEDS ORDERED: BENTYL 10 MG CA10 M1 PO (12:06)
[2021-01-05 12:25] VITALS: BP 109/79
--- NOTE | 2021-01-05 14:50 | EKG ---
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[facility] 1980 Requested By: Berto Galdamez Order Number: [id number] MD: Luke Thompson Measurements Intervals [place] Rate: 75 P: 54 GA: 159 QRS: 63 QRSD: 93 T: 48 QT: 369 QTc: 413 Interpretive Statements Sinus rhythm Abnormal inferior Q waves Compared to ECG 03/30/2020 15:04:07 rate has increased Electronically Signed On 01-05-2021 14:49:57 CDT by Luke Thompson [email or web address] <ELECTRONICALLY SIGNED> By: Luke Thompson MD, [facility] 01/05/21 1449 0957 0957 Luke Thompson MD, [facility] /EPI
== END 2021-01-05 12:25 | disposition home or self-care (01) ==
LOC: M.ERS 09:18
PROVIDERS: Emergency Medicine Emergency Medical Services
DX: R10.31 Right lower quadrant pain (principal); R10.32 Left lower quadrant pain; R11.0 Nausea; F32.9 Major depressive disorder, single episode, unspecified; Z90.49 Acquired absence of other specified parts of digestive tract; Z79.899 Other long term (current) drug therapy; Z88.6 Allergy status to analgesic agent; Z88.0 Allergy status to penicillin

== ENCOUNTER 2021-01-10 10:54 | Emergency (ER) | payer MEDICARE ==
[~2021-01-10] VITALS: Ht 177.8 cm; Wt 84.4 kg
[~2021-01-10 10:54] MED LIST changes: +BENTYL 10 MG CA10 M1 PO; +MECLIZINE HCL25 M1 PO
[2021-01-10] MEDS ORDERED: ZOFRAN ODT4 MG DISSOLVE (12:36)
[2021-01-10] MEDS ORDERED: HYDROCODON-ACE1 EAC7 PO (12:36)
[2021-01-10 13:04] VITALS: BP 167/94
== END 2021-01-10 13:04 | disposition home or self-care (01) ==
LOC: M.ERS 10:54
DX: R51.9 Headache, unspecified (principal); R10.31 Right lower quadrant pain; R10.32 Left lower quadrant pain; Z90.49 Acquired absence of other specified parts of digestive tract; Z88.0 Allergy status to penicillin; Z88.5 Allergy status to narcotic agent; Z88.6 Allergy status to analgesic agent

== ENCOUNTER 2021-01-13 15:03 | Emergency (ER) | payer MEDICARE ==
[~2021-01-13] VITALS: Ht 177.8 cm; Wt 86.2 kg
[~2021-01-13 15:03] MED LIST changes: +ZOFRAN ODT4 MG DISSOLVE
[2021-01-13 15:31] LABS: ABSOLUTE EOSINOPHILS 0.2 thou/uL (0.0-0.7); ABSOLUTE LYMPHOCYTES 1.8 thou/uL (0.8-5.3); ABSOLUTE MONOCYTES 0.5 thou/uL (0.0-1.2); ABSOLUTE NEUTROPHILS 2.5 thou/uL (1.6-8.1); EOSINOPHILS 3.5 %; HEMATOCRIT 41.2 % (42.0-52.0); HEMOGLOBIN 14.8 gm/dL (14.0-18.0); LYMPHOCYTES 35.6 %; MCH 30.6 pg (26.0-34.0); MCHC 35.9 g/dL (28.0-37.0); MCV 85.1 fL (80.0-100.0); MONOCYTES 10.7 %; MPV 8.4 fl. (7.2-11.1); NUCLEATED RBCS 0 /100WBC; PLATELET COUNT* 152 thou/uL (150-400); POLYS 49.2 %; RBC 4.84 mil/uL (4.50-6.00); RDW-CV 12.9 % (10.5-14.5)
[2021-01-13 15:41] LABS: CALCIUM 8.7 mg/dL (8.5-10.1); CREATININE 0.9 mg/dL (0.6-1.3); POTASSIUM 3.3 mmol/L (3.5-5.1)
[2021-01-13 15:46] LABS: TOTAL BILIRUBIN 0.4 mg/dL (<0.1-1.0); TOTAL PROTEIN 7.8 g/dL (6.4-8.2)
[2021-01-13] MEDS ORDERED: XANAX 0.5 MG0.5 MG PO (16:14)
[2021-01-13 16:15] VITALS: BP 150/106
== END 2021-01-13 16:15 | disposition home or self-care (01) ==
LOC: M.ERS 15:03
PROVIDERS: Family Medicine
DX: F41.0 Panic disorder [episodic paroxysmal anxiety] (principal); G89.29 Other chronic pain; Z88.0 Allergy status to penicillin; Z88.5 Allergy status to narcotic agent; Z88.6 Allergy status to analgesic agent; Z90.49 Acquired absence of other specified parts of digestive tract

== ENCOUNTER 2021-01-22 07:07 | Emergency (ER) | payer MEDICARE ==
[~2021-01-22 07:07] MED LIST changes: +XANAX 0.5 MG0.5 MG PO
[2021-01-31] MEDS ORDERED: HYDROCODON-ACE1 EAC7 PO ×2 (10:18)
[2021-01-31] MEDS ORDERED: TIZANIDINE HCL 22 M1 PO (10:18)
[2021-01-31] MEDS ORDERED: TRANSDERM-SCOP1 EACH TRANSDERM (10:20)
== END 2021-01-22 07:17 | disposition left against medical advice (07) ==
LOC: M.ERS 07:07
DX: Z53.21 Procedure and treatment not carried out due to patient leaving prior to being seen by health care provider (principal)

== ENCOUNTER → 2021-01-31 | Outpatient (CLI) | payer MEDICARE | LOC: M.PC 09:14 | PROVIDERS: ATTEND Anesthesiology Pain Medicine | DX: R42 Dizziness and giddiness (principal); R10.9 Unspecified abdominal pain; Z83.0 Family history of human immunodeficiency virus [HIV] disease; Z87.438 Personal history of other diseases of male genital organs ==

== ENCOUNTER → 2021-03-28 | Outpatient (CLI) | payer MEDICARE ==
[~2021-03-28] MED LIST changes: +AMITRIPTYLINE H10 M1 PO
== END ==
LOC: M.PC 09:12
PROVIDERS: ATTEND Anesthesiology Pain Medicine
DX: R10.9 Unspecified abdominal pain (principal); N50.819 Testicular pain, unspecified; R42 Dizziness and giddiness; Z79.891 Long term (current) use of opiate analgesic; Z79.899 Other long term (current) drug therapy

== ENCOUNTER → 2021-05-23 | Outpatient (CLI) | payer MEDICARE | LOC: M.PC 09:16 | PROVIDERS: ATTEND Anesthesiology Pain Medicine | DX: R42 Dizziness and giddiness (principal); R20.8 Other disturbances of skin sensation ==

== ENCOUNTER → 2021-07-18 | Outpatient (CLI) | payer MEDICARE | LOC: M.PC 09:22 | PROVIDERS: ATTEND Anesthesiology Pain Medicine | DX: R10.9 Unspecified abdominal pain (principal); G89.29 Other chronic pain; F32.9 Major depressive disorder, single episode, unspecified; B20 Human immunodeficiency virus [HIV] disease; R20.8 Other disturbances of skin sensation; E87.5 Hyperkalemia; Z79.899 Other long term (current) drug therapy; Z88.0 Allergy status to penicillin; Z88.8 Allergy status to other drugs, medicaments and biological substances ==

== ENCOUNTER 2021-08-09 14:41 | Emergency (ER) | payer MEDICARE ==
[~2021-08-09] VITALS: Ht 177.8 cm; Wt 86.2 kg
[2021-08-09 15:14] LABS: ABSOLUTE BASOPHILS 0.1 thou/uL (0.0-0.2); ABSOLUTE LYMPHOCYTES 3.7 thou/uL (0.8-5.3); ABSOLUTE MONOCYTES 0.8 thou/uL (0.0-1.2); ABSOLUTE NEUTROPHILS 2.5 thou/uL (1.6-8.1); BASOPHILS 0.8 %; EOSINOPHILS 0.4 %; HEMATOCRIT 39.8 % (42.0-52.0); HEMOGLOBIN 13.6 gm/dL (14.0-18.0); LYMPHOCYTES 52.1 %; MCH 30.7 pg (26.0-34.0); MCHC 34.2 g/dL (28.0-37.0); MCV 89.7 fL (80.0-100.0); MONOCYTES 11.1 %; MPV 8.3 fl. (7.2-11.1); NUCLEATED RBCS 0 /100WBC; PLATELET COUNT* 181 thou/uL (150-400); POLYS 35.6 %; RBC 4.44 mil/uL (4.50-6.00); RDW-CV 12.9 % (10.5-14.5); WBC 7.1 thou/uL (4.0-11.0)
[2021-08-09 15:31] LABS: CALCIUM 8.8 mg/dL (8.5-10.1); CREATININE 1.1 mg/dL (0.6-1.3)
[2021-08-09 15:41] LABS: ALBUMIN 3.9 g/dL (3.4-5.0); TOTAL BILIRUBIN 0.5 mg/dL (<0.1-1.0); TOTAL PROTEIN 7.3 g/dL (6.4-8.2)
[2021-08-09 15:45] LABS: POTASSIUM 2.8 mmol/L (3.5-5.1)
[2021-08-09 16:26] VITALS: BP 133/70
--- NOTE | 2021-08-09 17:13 | EKG ---
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 : 1980 Requested By: Сергей Jane Order Number: [id number] MD: Luke Thompson Measurements Intervals [place] Rate: 82 P: 39 NV: 148 QRS: 47 QRSD: 95 T: 25 QT: 377 QTc: 441 Interpretive Statements Sinus rhythm Compared to ECG 01/05/2021 09:57:51 no change Electronically Signed On 08-09-2021 17:13:31 FISHING TOOL SUPERVISOR by Luke Thompson [email or web address] <ELECTRONICALLY SIGNED> By: Luke Thompson MD, [facility] 08/09/21 1713 09 09 Luke Thompson MD, [facility] /EPI
== END 2021-08-09 16:27 | disposition home or self-care (01) ==
LOC: M.ERS 14:41
PROVIDERS: Family Medicine
DX: R55 Syncope and collapse (principal); F32.9 Major depressive disorder, single episode, unspecified; Z90.49 Acquired absence of other specified parts of digestive tract; Z79.899 Other long term (current) drug therapy; Z88.6 Allergy status to analgesic agent; Z88.0 Allergy status to penicillin

== ENCOUNTER → 2021-09-12 | Outpatient (CLI) | payer MEDICARE ==
[~2021-09-12] MED LIST changes: +ULTRAM 50MG TAB50 MG PO
== END ==
LOC: M.PC 08:00
PROVIDERS: ATTEND Anesthesiology Pain Medicine
DX: G89.29 Other chronic pain (principal); R10.9 Unspecified abdominal pain; R42 Dizziness and giddiness; Z88.0 Allergy status to penicillin; Z88.8 Allergy status to other drugs, medicaments and biological substances; Z79.899 Other long term (current) drug therapy

== ENCOUNTER → 2021-10-10 | Outpatient (CLI) | payer MEDICARE ==
[~2021-10-10] MED LIST changes: +AMITRIPTYLINE H25 M4 PO
== END ==
LOC: M.PC 08:02
PROVIDERS: ATTEND Anesthesiology Pain Medicine
DX: G89.29 Other chronic pain (principal); R10.9 Unspecified abdominal pain; R42 Dizziness and giddiness; Z21 Asymptomatic human immunodeficiency virus [HIV] infection status; Z88.0 Allergy status to penicillin; Z88.8 Allergy status to other drugs, medicaments and biological substances; Z79.899 Other long term (current) drug therapy